=== PATIENT | female | born 1960 | race Caucasian/White ===

== ENCOUNTER 2020-02-04 13:58 | Outpatient (RCR) | payer OTHER, SELFPAY ==
--- NOTE | 2020-02-06 07:50 | PTOPEVAL ---
Thank you for referring Mihaela Guadalupe to [facility]. Please review, sign, date and return this plan of care HU. I agree with and certify that the following plan of care is medically necessary. Referring Physician Date Admitting Provider: Attending Provider: German Cornelius MD Referring Provider: *PT Outpatient Evaluation Start: 02/04/20 14:11 Freq: Status: Active Protocol: Document 02/04/20 14:11 ALFREDO (Rec: 02/04/20 14:45 ALFREDO [id number]) Therapy Assessment Status Assessment Status Assessment Status Evaluation Evaluation Information Problem Diagnosis low back pain Onset 01/11/20 Subjective Information Pt. reports that she has a Query Text:As Reported By Patient/ long standing hx of low back Family pain for about 30 years. She reports she suffered a recent flare up starting on 01/11/20. She reports that she has been moving recently and has contributed to her pain. She describes pain on the right side of the low back and notes that she does develop weakness into the left knee. She reports that her goal is to be able to stand for longer than 1 hour without pain. Prior Level of Function Activity Level (Last 3 Months) Occupation unemployed Hand Dominance Right Activity of Daily Living Ability Independent Indoor/Home Mobility Independent Community Mobility Independent Stairs Ability Independent Functional Cognition (Planning, Shopping Independent , Taking Medications) Cooking Yes Cleaning Yes Laundry Yes Shopping Yes Driving Yes Comments Additional Prior Level of Function Pt. reports she cannot perform Comments ADL's and IADL's for long periods of time due to pain. Pain Assessment Pain Scale Pain Scale Used Numeric (1 - 10) Self Report Pain Assessment Lower Back Reported Pain Level 3 Pain Description Aching,Heavy Pain Frequency Chronic,Continuous Lowest Pain Intensity 3 Greatest Pain Intensity 10 Pain Aggravating Factors Bending,Lifting,Stair Climbing ,Supine,Walking Pain Score Pain Score 3: Self Rep
--- NOTE | 2020-02-19 15:02 | PCPTNOTE ---
02/19/20-pt cancelled today's appointment secondary to allergies.-.
--- NOTE | 2020-02-21 10:30 | PCPTNOTE ---
02/21/20-pt cancelled apt today -
== END 2020-03-11 10:07 | disposition home or self-care (01) ==
LOC: CHSPT 13:58
PROVIDERS: PCP Family Medicine; Visit Provider Family Medicine
DX: M54.5 Low back pain (principal); M54.10 Radiculopathy, site unspecified
CPT/HCPCS: 97014; 97110; 97140; 97161; G0283

== ENCOUNTER 2020-03-29 10:17 | Outpatient (CLI) | payer OTHER, SELFPAY ==
--- NOTE | ~2020-03-29 | MR_ITS ---
EXAMINATION: MR lumbar spine wo con EXAM DATE: 03/29/2020 11:54 INDICATION: Low back pain going down right leg. TECHNIQUE: Multi-sequential, multiplanar MR images of the lumbar spine were obtained without contrast . Sagittal T1, T2, T2 fat saturation images. Axial T2 weighted images. There is no prior study for comparison. FINDINGS: The vertebral bodies are aligned in the AP dimension. Vertebral body and disc heights are w ell-maintained. Mild lumbar disc desiccation. There are no suspicious marrow signal abnormalities. Th e conus medullaris terminates at the L1/2 level and has normal signal intensity and morphology. Para spinal soft tissue is unremarkable. Level by level evaluation: T12-L1: Disc does not extend beyond the endplate margin. Facet arthropathy: None. Neural foraminal stenosis: No stenosis. Central canal stenosis: No stenosis. L1-L2: Disc does not extend beyond the endplate margin. Facet arthropathy: Mild. Neural foraminal stenosis: No stenosis. Central canal stenosis: No stenosis. L2-L3: Disc does not extend beyond the endplate margin. Facet arthropathy: Mild. Neural foraminal stenosis: No stenosis. Central canal stenosis: No stenosis. L3-L4: There is a minimal diffuse disc bulge. Facet arthropathy: Moderate left, mild to moderate right. Neural foraminal stenosis: No stenosis. Central canal stenosis: No stenosis. L4-L5: There is a mild diffuse disc bulge. Facet arthropathy: Moderate. Neural foraminal stenosis: Mild to moderate bilateral. Central canal stenosis: Mild. L5-S1: Small for lost extrusion causing mild left neural foraminal stenosis. Facet arthropathy: Mild. Neural foraminal stenosis: Mild left, no right. Central canal stenosis: No stenosis. IMPRESSION: 1. Mild lumbar spondylosis. Reviewed, dictated and finalized at location A. IMPRESSION: 1. Mild lumbar spondylosis.
== END 2020-03-29 10:18 | disposition home or self-care (01) ==
LOC: CHSIMG 10:19
PROVIDERS: PCP Family Medicine; Visit Provider Family Medicine
DX: M54.5 Low back pain (principal)
CPT/HCPCS: 72148

== ENCOUNTER 2020-06-18 12:40 | Outpatient (CLI) | payer OTHER, SELFPAY ==
--- NOTE | ~2020-06-18 | XR_ITS ---
EXAMINATION: XR ankle LT min 3V DATE: 06/18/2020 13:19 INDICATION: Left ankle pain TECHNIQUE: Anteroposterior, oblique, mortise, and lateral views of the left ankle were obtained. COMPARISON: None. FINDINGS: Alignment is normal. No fracture. Unchanged mild lateral predominant nonuniform joint space narrowin g at the tibiotalar articulation. Small Achilles and plantar calcaneal enthesophytes. No ankle joint effusion. Soft tissue swelling about the left ankle. Possible left ankle joint effusion. IMPRESSION: 1. No acute osseous abnormality. Reviewed, dictated and finalized at location A.
--- NOTE | ~2020-06-18 | XR_ITS ---
EXAMINATION: XR knee LT 3V DATE: Left knee pain INDICATION: Left knee pain TECHNIQUE: AP and sunrise views of the left knee were obtained. COMPARISON: 07/25/2018 FINDINGS: Alignment is normal. No fracture. Tiny marginal osteophytes in all 3 compartments. Mild joint space n arrowing in the medial aspect of the patellofemoral articulation which is increased since the prior s tudy. Soft tissues are unremarkable. IMPRESSION: 1. Minimal to mild tricompartmental osteoarthritis at the left knee. Reviewed, dictated and finalized at location A.
== END 2020-06-18 12:41 | disposition home or self-care (01) ==
LOC: CHSIMG 12:42
PROVIDERS: PCP Family Medicine; Visit Provider Family Medicine
DX: M25.572 Pain in left ankle and joints of left foot (principal); M25.562 Pain in left knee
CPT/HCPCS: 73562; 73610

== ENCOUNTER 2020-08-20 14:22 | Emergency (ER) | payer OTHER, SELFPAY ==
--- NOTE | ~2020-08-20 | CT_ITS ---
EXAMINATION: CT abdomen pelvis wo con DATE: 08/20/2020 15:42 INDICATION: Left flank pain. History of kidney stones. TECHNIQUE: Computed tomography (CT) of the abdomen and pelvis was performed without intravenous contr ast. Automated exposure control and iterative reconstruction technique were employed. Exam dose: 501 .13 mGy-cm total exam DLP. COMPARISON: 10/17/2018 CT abdomen pelvis. FINDINGS: There is mild discoid atelectasis and/or scarring in the lower lungs. Normal heart size. No pericardial or pleural effusion. Status post cholecystectomy. No hepatic, splenic, pancreatic, adrenal or renal space occupying mass lesion is detected on this petersen ited noncontrast examination. There is a questionable pinpoint nonobstructing left lower pole renal c alculus; otherwise no urinary tract calculus or hydroureteronephrosis. Status post hysterectomy. The urinary bladder is unremarkable. Normal caliber of the abdominal aorta. There are numerous shotty lymph nodes throughout the left periaortic area extending into the left com mon iliac chain, mildly increased in prominence compared to the prior examination of 10/17/2018. Oth erwise no intraperitoneal or retroperitoneal or pelvic mass lesion or lymphadenopathy or ascites. No bowel obstruction or pneumatosis or intraperitoneal free air. Status post anterior abdominal wall repair. No suspicious osteolytic or osteoblastic lesions are noted. IMPRESSION: Nonspecific left periaortic and common iliac shotty lymph nodes, mildly increased in pro minence compared to 10/17/2018 Possible very subtle pinpoint nonobstructing lower pole left renal calculus; no ureteral calculus or hydroureteronephrosis Status post cholecystectomy Status post hysterectomy Reviewed, dictated and finalized at Location A. Reviewed, dictated and finalized at location A. IMPRESSION: Nonspecific left periaortic and common iliac shotty lymph nodes, m ildly increased in prominence compared to 10/17/2018 Possible very subtle pinpoint nonobstructing lower pole left renal calculus; no ureteral calculus or hydroureteronephrosis Status post cholecystectomy Status post hysterectomy
[2020-08-20 14:25] VITALS: BP 129/75; PULSE 82; RESP 13; TEMP 36.8; O2SAT 98
--- NOTE | 2020-08-20 15:04 | ED.BACK ---
HPI - Back Pain/Injury General Chief Complaint: Back Pain/Injury Stated Complaint: upper back pain hx of kidney stones Source: patient Mode of arrival: ambulatory Limitations: no limitations History of Present Illness HPI Narrative: Pt has been having ab pain/ left flank pain for last few days. She states that she has been moving so she didnt think too much about it, but over last few days it has gotten worse. She tells me she has a kidney stone that was too big to pass, but hasnt been able to see a urologist, because they dont take her insurance MD elicited complaint: back pain Pertinent past history: kidney stones Onset (ago): day(s) Timing: intermittent Severity: severe Quality: sharp Location: left flank Radiation: none Exacerbating factors: none Relieving factors: none Context: history of kidney stones Associated symptoms: denies other symptoms Related Data Home Medications Medication Instructions Recorded Confirmed atorvastatin 40 mg PO DAILY 08/20/20 08/20/20 clonazepam 1 mg PO HS 08/20/20 08/20/20 fenofibrate nanocrystallized 48 mg PO DAILY 08/20/20 08/20/20 pantoprazole 40 mg PO DAILY 08/20/20 08/20/20 pioglitazone 30 mg PO DAILY 08/20/20 08/20/20 Allergies Allergy/AdvReac Type Severity Reaction Status Date / Time aspirin Allergy Unknown Unknown Verified 08/20/20 15:23 morphine Allergy Unknown Unknown Verified 08/20/20 15:23 procaine Allergy Unknown NOVOCAINE Verified 08/20/20 15:23 DOES NOTHING SURGICAL TAPE Allergy Severe BLISTERS Uncoded 05/22/04 13:02 Review of Systems Review of Systems: All systems reviewed & are unremarkable except as noted in HPI and below Constitutional: Constitutional: Reports no additional constitutional complaints Eyes: Eyes: Reports no additional eye complaints ENT: Reports system reviewed and no additional complaints, except as documented Cardiovascular: Cardiovascular: Reports no additional cardiovascular complaints Respiratory: Respiratory: Reports no additional respiratory complaints Gastrointestinal: Gastrointestinal: Reports no additional gastrointestinal complaints Genitourinary: Comments: c/o cloudy urine Musculoskeletal: Musculoskeletal: Reports no additional musculoskeletal complaints Neurologic: Reports system reviewed and no additional complaints, except as documented Psychiatric: Psychiatric: Reports no additional psychiatric complaints Hematologic/Lymphatic: Hematologic/Lymphatic: Reports no additional hematologic/lymphatic complaints Allergic/Immunologic: Comments: allergic type rash onleft breast. Pt states rash was more widespread, but she has been taking benadryl and it has been getting better PMFSH Past Medical History Medical History Constipation Lower abdominal pain Family History Family History Father Diabetes mellitus Family history of cardiovascular disease Social History Social History (Updated 08/20/20 @ 15:16 by Tawnya Lilly MD) Smoking status: Never smoker Alcohol intake: current Substance use: never Living arrangements: with family Exam Const: General: no acute distress Orientation/consciousness: patient oriented x3 HENMT: Head: normal to inspection Eyes: Conjunctivae: conjunctivae normal Neck: Neck: normal visual inspection Chest: Chest palpation & inspection: normal inspection of the chest Resp: Effort & Inspection: normal respiratory effort Cardio: Rate: regular rate Rhythm: regular rhythm Skin: General skin exam: normal color Other: mild contact dermatitis on left breast Neuro: General: patient oriented x3 and moves all extremities Extrem: General: normal to inspection Psych: Mental Status: mental status grossly normal Course Vital Signs Vital signs: Vital Signs Temperature 36.8 C 08/20/20 14:25 Pulse Rate 82 08/20/20 14:25 Respirat
[2020-08-20] MEDS: KETOROLAC 30 MG/ML VIAL (*BKC) IV PUSH (15:20)
[2020-08-20 15:30] LABS: Basophils Absolute Auto 0.04 K/mm3 (0.00-0.10); Basophils Percent Auto 0.6 % (0.0-1.0); Eosinophils Percent Auto 1.6 % (1.0-6.0); Hematocrit 36.8 % (35.0-49.0); Hemoglobin 12.1 g/dL (12.0-15.0); Immature Granulocyte Absolute 0.06 K/mm3 (0.00-0.00); Lymphocytes Absolute Auto 1.58 K/mm3 (1.10-4.50); Lymphocytes Percent Auto 25.6 % (18.0-42.0); Mean Corpuscular HGB Conc 32.9 g/dL (32.0-36.0); Mean Corpuscular Hemoglobin 29.8 pg (27.0-31.0); Mean Corpuscular Volume 90.6 fL (78.0-102.0); Mean Platelet Volume 10.5 fl (9.2-11.8); Monocytes Absolute Auto 0.51 K/mm3 (0.10-0.90); Monocytes Percent Auto 8.3 % (2.0-11.0); Neutrophils Absolute Auto 3.9 K/mm3 (1.7-7.2); Neutrophils Percent Auto 62.9 % (50.0-70.0); Platelet Count Result 200 K/mm3 (150-420); Red Blood Count 4.06 M/mm3 (4.20-5.40); Red Cell Distribution Width 13.2 % (11.6-14.4); White Blood Count 6.2 K/mm3 (4.8-10.8)
[2020-08-20 15:32] LABS: Add Urine Microscopic? YES; Appearance Urine Clear (Clear); Bilirubin Urine Negative (Negative); Blood Urine Negative (Negative); Color Urine Yellow (Yellow); Glucose Urine UA Negative (Negative); Ketones Urine Negative (Negative); Leukocyte Esterase Ur 1+ LEU/UL (Negative); Nitrate Urine Negative (Negative); Protein Urine Negative (Negative); Specific Grav Ur 1.025 (1.010-1.020); Urobilinogen Urine 0.2 mg/dL (0.2-1.0); pH Urine 5.5 (5.0-8.0)
[2020-08-20 15:45] LABS: RBC Urine None seen /hpf (0-2); Squamous Epithelial Cell Urine Few /hpf (Few)
[2020-08-20 15:46] LABS: Alanine Aminotransferase 27 U/L (14-59); Albumin Level 3.7 g/dL (3.4-5.0); Alkaline Phosphatase 65 U/L (46-116); Anion Gap 8 mmol/L (8-16); Aspartate Amino Transferase 17 U/L (15-37); Bilirubin,Total 0.3 mg/dL (0.00-1.00); Blood Urea Nitrogen 21 mg/dL (7-18); Calcium 8.9 mg/dL (8.5-10.1); Carbon Dioxide 27 mmol/L (21-32); Chloride 105 mmol/L (98-108); Estimated CRCL calculation 73 ml/min; Estimated Glomerular Filt Rate > 60; Glucose 116 mg/dL (70-99); Lipase 103 U/L (73-393); Osmolality Calculated 294 mOsm/kg (285-295); Potassium 3.8 mmol/L (3.5-5.1); Sodium 140 mmol/L (136-145); Total Protein 7.2 g/dL (6.4-8.2)
[2020-08-20 15:46] LABS: Bacteria Urine 1+ /hpf
[2020-08-20 16:48] VITALS: BP 100/55; RESP 15; O2SAT 99
== END 2020-08-20 16:55 | disposition home or self-care (01) ==
PROVIDERS: Emergency Provider Emergency Medicine; PCP Family Medicine
DX: N30.00 Acute cystitis without hematuria (principal)
CPT/HCPCS: 36415; 74176; 80053; 81001; 83690; 85025; 87086; 96374; 99283; 99284; J1885

== ENCOUNTER 2020-08-28 11:15 | Outpatient (CLI) | payer OTHER, SELFPAY ==
[2020-08-29 15:20] LABS: SARS-CoV-2 RNA PCR Negative
== END 2020-08-28 11:16 | disposition home or self-care (01) ==
PROVIDERS: PCP Family Medicine; Visit Provider Family Medicine
DX: Z20.828 Contact with and (suspected) exposure to other viral communicable diseases (principal)
CPT/HCPCS: 87635; C9803; U0003

== ENCOUNTER 2020-10-11 10:09 | Outpatient (CLI) | payer OTHER, SELFPAY ==
[2020-10-13 16:54] LABS: SARS-CoV-2 RNA PCR Negative
== END 2020-10-11 10:10 | disposition home or self-care (01) ==
LOC: CHSLAB 10:11
PROVIDERS: PCP Family Medicine; Visit Provider Family Medicine
DX: R05 Cough (principal); Z20.828 Contact with and (suspected) exposure to other viral communicable diseases
CPT/HCPCS: 87635; C9803; U0003

== ENCOUNTER 2020-11-28 15:29 | Outpatient (CLI) | payer OTHER, SELFPAY ==
[2020-11-28 16:10] LABS: SARS-CoV-2 Ag Negative (Negative)
[2020-11-28 16:11] LABS: Influenza Control Valid (Valid)
== END 2020-11-28 15:30 | disposition home or self-care (01) ==
LOC: CHSLAB 15:32
PROVIDERS: PCP Family Medicine; Visit Provider Family Medicine
DX: J00 Acute nasopharyngitis [common cold] (principal); Z20.822 Contact with and (suspected) exposure to COVID-19
CPT/HCPCS: 87426; 87804; C9803

== ENCOUNTER 2021-01-05 10:12 | Outpatient (CLI) | payer OTHER, SELFPAY ==
[2021-01-06 18:33] LABS: SARS-CoV-2 RNA PCR Negative
== END 2021-01-05 10:13 | disposition home or self-care (01) ==
LOC: CHSLAB 10:15
PROVIDERS: PCP Family Medicine; Visit Provider Family Medicine
DX: Z20.822 Contact with and (suspected) exposure to COVID-19 (principal)
CPT/HCPCS: C9803; U0003; U0005

== ENCOUNTER 2021-02-11 17:12 | Outpatient (CLI) | payer OTHER, SELFPAY ==
--- NOTE | ~2021-02-11 | XR_ITS ---
[XR ribs LT 2V w CXR 2V ] INDICATION: Left chest wall pain TECHNIQUE: Frontal projection of the upper left ribs, frontal projection of the lower left ribs, obli que projection of all the left ribs, frontal inspiratory chest x-ray for interpretation. FINDINGS: There are no displaced rib fractures identified. There are no soft tissue abnormality see n. There is atelectasis of the left midlung zone.. There are cholecystectomy clips. IMPRESSION: 1:No displaced rib fractures. 2:Atelectasis left midlung zone. Reviewed, dictated and finalized at location A.
[2021-02-11 17:32] LABS: Basophils Absolute Auto 0.03 K/mm3 (0.00-0.10); Basophils Percent Auto 0.5 % (0.0-1.0); Eosinophils Percent Auto 1.7 % (1.0-6.0); Hematocrit 37.8 % (35.0-49.0); Hemoglobin 12.1 g/dL (12.0-15.0); Immature Granulocyte Absolute 0.09 K/mm3 (0.00-0.00); Immature Granulocyte Percent A 1.5 % (0.0-0.0); Lymphocytes Absolute Auto 1.35 K/mm3 (1.10-4.50); Lymphocytes Percent Auto 22.7 % (18.0-42.0); Mean Corpuscular Hemoglobin 29.6 pg (27.0-31.0); Mean Corpuscular Volume 92.4 fL (78.0-102.0); Mean Platelet Volume 10.2 fl (9.2-11.8); Monocytes Absolute Auto 0.64 K/mm3 (0.10-0.90); Monocytes Percent Auto 10.8 % (2.0-11.0); Neutrophils Absolute Auto 3.7 K/mm3 (1.7-7.2); Neutrophils Percent Auto 62.8 % (50.0-70.0); Platelet Count Result 197 K/mm3 (150-420); Red Blood Count 4.09 M/mm3 (4.20-5.40); Red Cell Distribution Width 13.7 % (11.6-14.4)
[2021-02-11 17:42] LABS: Hemoglobin A1C 6.5 % (<5.7)
[2021-02-11 17:54] LABS: MALB Creatinine Ratio 40.9 mg/g (0-30)
[2021-02-11 17:57] LABS: Troponin I 6.1 ng/L (0.00-60.4)
[2021-02-11 18:24] LABS: Alanine Aminotransferase 25 U/L (14-59); Albumin Level 3.6 g/dL (3.4-5.0); Alkaline Phosphatase 79 U/L (46-116); Anion Gap 10 mmol/L (8-16); Aspartate Amino Transferase 17 U/L (15-37); Bilirubin,Total 0.5 mg/dL (0.00-1.00); Blood Urea Nitrogen 21 mg/dL (7-18); Calcium 8.9 mg/dL (8.5-10.1); Carbon Dioxide 26 mmol/L (21-32); Chloride 103 mmol/L (98-108); Estimated Glomerular Filt Rate 59; Glucose 176 mg/dL (70-99); Osmolality Calculated 295 mOsm/kg (285-295); Potassium 3.9 mmol/L (3.5-5.1); Sodium 139 mmol/L (136-145); Total Protein 7.5 g/dL (6.4-8.2)
[2021-02-11 18:27] LABS: Thyroid Stimulating Hormone < 0.01 uIU/mL (0.36-3.74)
[2021-02-12 07:18] LABS: Free T4 Free Thyroxine 1.07 ng/dL (0.76-1.46)
== END 2021-02-11 17:13 | disposition home or self-care (01) ==
LOC: CHSLAB 17:14
PROVIDERS: PCP Family Medicine; Visit Provider Family Medicine
DX: E11.9 Type 2 diabetes mellitus without complications (principal); R07.89 Other chest pain; R94.6 Abnormal results of thyroid function studies
CPT/HCPCS: 36415; 71046; 71100; 80053; 83036; 84439; 84443; 84484; 85025

== ENCOUNTER 2021-06-03 08:58 | Outpatient (CLI) | payer OTHER, SELFPAY ==
--- NOTE | ~2021-06-03 | NM_ITS ---
EXAM: NM gastric emptying study DATE: 06/03/2021 15:18 INDICATION: Abdominal distention (gaseous). TECHNIQUE: A gastric emptying study was performed using the methodology of Cathleen ALBRIGHT, et al. J Nucl Med 2007; 48:568-572. The patient was given a meal consisting of 2 scrambled eggs labeled with 1 mCi Tc-99m sulfur colloid, 2 slices of toast, two packages of jam, and approximately 120 mL of water. Si multaneous anterior and posterior 1-min images of the abdomen were obtained with the patient supine a t multiple time points over a total period of 4 hours. The geometric mean of anterior and posterior v iews was determined, and the percentage retention was calculated for each time point. COMPARISON: CT abdomen and pelvis 08/20/2020 FINDINGS: Gastric retention of the radiotracer-labeled meal was 61%, 29%, and 7% at the 1-hour, 2-ho ur, and 4-hour time points, respectively. With this technique, apparent rapid gastric emptying is sug gested by <30% gastric retention at 1 hour. Delayed gastric emptying is defined by gastric retention of >90% at 1 hour, >60% retention at 2 hours, or >10% retention at 4 hours. IMPRESSION: 1. Normal gastric emptying. Reviewed, dictated and finalized at location A. IMPRESSION: 1. Normal gastric emptying.
== END 2021-06-03 08:59 | disposition home or self-care (01) ==
LOC: ANHIMG 09:01
PROVIDERS: PCP Family Medicine; Visit Provider Internal Medicine Gastroenterology
DX: R14.0 Abdominal distension (gaseous) (principal)
CPT/HCPCS: 78264; A9541

== ENCOUNTER 2021-08-27 13:15 | Outpatient (CLI) | payer OTHER, SELFPAY ==
--- NOTE | ~2021-08-27 | CT_ITS ---
EXAMINATION: CT abdomen pelvis wo con DATE: 08/27/2021 13:34 INDICATION: Abdominal pain TECHNIQUE: Computed tomography (CT) of the abdomen and pelvis was performed without intravenous contr ast. The dose-length product (DLP) was 1104.10 mGy-cm. Automated exposure control and iterative recon struction technique were employed. COMPARISON: 08/20/2020 FINDINGS: Minimal dependent atelectasis is present in the lung bases. The heart size is normal. The g allbladder is surgically absent. Punctate calcifications in an otherwise normal spleen likely represe nt healed granulomatous disease. The liver, pancreas, and adrenal glands are normal. There is a 3 mm nonobstructing stone of the right kidney. The left kidney is unremarkable. Left periaortic lymphadeno david persists but has improved. There is no free intraperitoneal gas or evidence of bowel obstructio n. Changes of mesh ventral hernia and right inguinal hernia repair are noted. The hernia repair appea rs intact. There is mild lumbar spondylosis. IMPRESSION: 1. No CT correlate for the patient's symptoms. 2. Left periaortic lymphadenopathy with interval decreased, likely reactive. 3. Nonobstructing right nephrolithiasis. Reviewed, dictated and finalized at location B.
== END 2021-08-27 13:16 | disposition home or self-care (01) ==
LOC: CHSIMG 13:16
PROVIDERS: PCP Family Medicine; Visit Provider Family Medicine
DX: R10.9 Unspecified abdominal pain (principal)
CPT/HCPCS: 74176

== ENCOUNTER 2022-06-07 08:27 | Outpatient (CLI) | payer MEDICARE, MEDICAID, SELFPAY ==
--- NOTE | 2022-06-07 08:30 | EST_ITS ---
Patient Info Name: Mihaela Guadalupe Age: 61 years : 1960 Gender: Female Ht: 65 in Wt: 215 lbs BSA: 2.16 m2 BP: 108 / 66 mmHg Technical Quality: Good Exam Date: 06/07/2022 8:52 AM Exam Location: [facility] Patient Status: Outpatient Admit Date: 06/07/2022 Staff Ordering Physician: German Cornelius MD Attending Provider: Myles Chaidez NMAA Exam Type: CA stress test treadmill Study Info An exercise stress test was performed. History/Risk Factors Obesity: Yes Diabetes Mellitus: Yes Family History: Coronary Artery Disease Dialysis: Prior Summary 1. 1. Negative Chucho exercise stress test for ischemic ST changes by ECG criteria. However, patient achieved only78% MPHR for age group which reduces sensitivity of the test. 2. 2. Poor functional capacity, achieving only 5 METs of workload. 3. 3. Appropriate HR response to exercise. 4. 4. Appropriate HR recovery at 1 minute post exercise. 5. 5. No imaging with stress testing. Recommendations * Continue medical therapy for diabetes. Protocol: Chucho Stress ECG Details Stage: REST Duration (min): 1 min : 16 sec Speed (mph): 0.0 Grade (%): 0 HR (bpm): 72 SBP (mmHg): 108 DBP (mmHg): 66 METS: --- Stage: REST Duration (min): 7 min : 23 sec Speed (mph): 0.0 Grade (%): 0 HR (bpm): 71 SBP (mmHg): 108 DBP (mmHg): 66 METS: --- Stage: STAGE 1 Duration (min): 1 min : 0 sec Speed (mph): 1.7 Grade (%): 10 HR (bpm): 100 SBP (mmHg): 108 DBP (mmHg): 66 METS: --- Stage: STAGE 1 Duration (min): 2 min : 0 sec Speed (mph): 1.7 Grade (%): 10 HR (bpm): 114 SBP (mmHg): 108 DBP (mmHg): 66 METS: --- Stage: STAGE 1 Duration (min): 3 min : 0 sec Speed (mph): 1.7 Grade (%): 10 HR (bpm): 120 SBP (mmHg): 108 DBP (mmHg): 66 METS: --- Stage: STAGE 2 Duration (min): 0 min : 15 sec Speed (mph): 2.5 Grade (%): 12 HR (bpm): 121 SBP (mmHg): 108 DBP (mmHg): 66 METS: --- Stage: RECOVERY Duration (min): 0 min : 44 sec Speed (mph): 0.0 Grade (%): 0 HR (bpm): 120 SBP (mmHg): 108 DBP (mmHg): 66 METS: --- Stage: RECOVERY Duration (min): 1 min : 44 sec Speed (mph): 0.0 Grade (%): 0 HR (bpm): 93 SBP (mmHg): 169 DBP (mmHg): 85 METS: --- Stage: RECOVERY Duration (min): 2 min : 44 sec Speed (mph): 0.0 Grade (%): 0 HR (bpm): 89 SBP (mmHg): 169 DBP (mmHg): 85 METS: --- Stage: RECOVERY Duration (min): 3 min : 44 sec Speed (mph): 0.0 Grade (%): 0 HR (bpm): 83 SBP (mmHg): 169 DBP (mmHg): 85 METS: --- Stage: RECOVERY Duration (min): 4 min : 44 sec Speed (mph): 0.0 Grade (%): 0 HR (bpm): 79 SBP (mmHg): 169 DBP (mmHg): 85 METS: --- Stage: RECOVERY Duration (min): 5 min : 44 sec Speed (mph): 0.0 Grade (%): 0 HR (bpm):
== END 2022-06-07 08:28 | disposition home or self-care (01) ==
LOC: CHSCARD 08:32
PROVIDERS: PCP Family Medicine; Visit Provider Family Medicine
DX: R00.2 Palpitations (principal)
CPT/HCPCS: 93017

== ENCOUNTER 2022-08-13 09:13 | Outpatient (CLI) | payer MEDICARE, MEDICAID, SELFPAY | END 2022-08-13 09:14 | disposition home or self-care (01) | LOC: CHSCARD 09:39 | PROVIDERS: PCP Family Medicine; Visit Provider Family Medicine | DX: R06.00 Dyspnea, unspecified (principal) | CPT/HCPCS: 94060; 94726; 94729 ==

== ENCOUNTER 2022-11-04 11:24 | Emergency (ER) | payer MEDICARE, MEDICAID, SELFPAY ==
[2022-11-04] VITALS (44 sets, daily range): BP systolic 113–158; BP diastolic 74–99; PULSE 74–108; RESP 11–37; TEMP 36.1; O2SAT 91–98
--- NOTE | ~2022-11-04 | CT_ITS ---
EXAMINATION: CT abdomen pelvis w con DATE: 11/04/2022 13:05 INDICATION: Nausea, vomiting and acute right lower quadrant abdominal pain. TECHNIQUE: Computed tomography (CT) of the abdomen and pelvis was performed with 100 mL Omnipaque-350 intravenous contrast. Automated exposure control and iterative reconstruction technique were employe d. The dose-length product was 1227.99 mGy-cm. COMPARISON: 08/27/2021 FINDINGS: Mild discoid atelectasis at the lingula and some dependent atelectasis in the bilateral lower lobes. Calcified left lower lobe nodule and small splenic calcific lesions consistent with old granulomatous disease. Heart size is normal. No pericardial or pleural effusion. Cholecystectomy clips the gallbla dder fossa. Liver, pancreas, bilateral adrenal glands and left kidney are normal. 7 x 5 x 3 mm obstru cting stone at the mid right ureter with mild hydroureteronephrosis, delayed right nephrogram and asy mmetric moderate right perinephric stranding. Status post appendectomy with surgical clips the tip th e cecum. Bowels are otherwise unremarkable with no obstruction. Postoperative change of prior ventral hernia mesh repair. Bladder is normal. No free intraperitoneal gas or fluid. No change since the mos t recent study and mild left para-aortic lymphadenopathy lymphadenopathy which is decreased since an earlier study dated 08/12/2020 and likely reactive. No new or enlarging abdominal or pelvic lymphaden opathy.. Moderate lower lumbar facet osteoarthritis. Otherwise minimal scattered degenerative skeleta l changes. IMPRESSION: 1. Obstructing 7 x 5 x 3 mm mid right ureteral stone with mild right hydroureteronephrosis. Correlate with urinalysis to exclude associated ascending urinary tract infection. Reviewed, dictated and finalized at location A. CULTURAL PLOW OPERATOR IMPRESSION: 1. Obstructing 7 x 5 x 3 mm mid right ureteral stone with mild right hydrourete ronephrosis. Correlate with urinalysis to exclude associated ascending urinary tract infection.
--- NOTE | 2022-11-04 11:35 | ECG_ITS ---
Measurements Intervals [place] Rate: 83 P: 59 TX: 180 QRS: 65 QRSD: 90 T: 8 QT: 384 QTc: 453 Interpretive Statements SINUS RHYTHM EARLY PRECORDIAL R/S TRANSITION BORDERLINE ST-T WAVE ABNORMALITY- ANTEROLAT/INF LEADS BORDERLINE ECG NO PREVIOUS ECG AVAILABLE FOR COMPARISON Electronically Signed On 11-04-2022 12:58:20 SENIOR ADVISOR by Arun Pascual D.O.
[2022-11-04] MEDS: KETOROLAC 30 MG/ML VIAL (*BKC) IV PUSH (12:11)
[2022-11-04 12:12] LABS: Basophils Absolute Auto 0.01 K/mm3 (0.00-0.10); Basophils Percent Auto 0.1 % (0.0-1.0); Hematocrit 39.3 % (35.0-49.0); Immature Granulocyte Absolute 0.08 K/mm3 (0.00-0.00); Immature Granulocyte Percent A 0.9 % (0.0-0.0); Lymphocytes Absolute Auto 0.78 K/mm3 (1.10-4.50); Lymphocytes Percent Auto 8.7 % (18.0-42.0); Mean Corpuscular HGB Conc 33.1 g/dL (32.0-36.0); Mean Corpuscular Hemoglobin 29.6 pg (27.0-31.0); Mean Corpuscular Volume 89.5 fL (78.0-102.0); Mean Platelet Volume 10.4 fl (9.2-11.8); Monocytes Absolute Auto 0.58 K/mm3 (0.10-0.90); Monocytes Percent Auto 6.5 % (2.0-11.0); Neutrophils Absolute Auto 7.5 K/mm3 (1.7-7.2); Neutrophils Percent Auto 83.8 % (50.0-70.0); Platelet Count Result 232 K/mm3 (150-420); Red Blood Count 4.39 M/mm3 (4.20-5.40); Red Cell Distribution Width 13.2 % (11.6-14.4); White Blood Count 8.9 K/mm3 (4.8-10.8)
[2022-11-04] MEDS: SODIUM CHLORIDE 0.9% IV 1,000 ML 999 ML IV CONT (12:12)
[2022-11-04] MEDS: ONDANSETRON INJ 4 MG/2 ML VIAL IV PUSH ×2 (12:12→14:54)
[2022-11-04 12:25] LABS: Add Urine Microscopic? YES; Appearance Urine Clear (Clear); Bilirubin Urine Negative (Negative); Blood Urine 3+ (Negative); Glucose Urine UA Negative (Negative); Ketones Urine Negative (Negative); Leukocyte Esterase Ur 1+ LEU/UL (Negative); Nitrate Urine Negative (Negative); Protein Urine 2+ (Negative); Specific Grav Ur >= 1.030 (1.010-1.020); Urobilinogen Urine 0.2 mg/dL (0.2-1.0); pH Urine 6.5 (5.0-8.0)
[2022-11-04 12:30] LABS: Partial Thromboplastin Time 30.1 SEC (23.90-30.70); Prothrombin Time 11.2 Seconds (9.50-12.10)
[2022-11-04 12:32] LABS: Bacteria Urine Trace /hpf; Color Urine Brown (Yellow); RBC Urine >75 /hpf (0-2); Squamous Epithelial Cell Urine Few /hpf (Few)
[2022-11-04 12:34] LABS: Lactic Acid Reflex 1.1 mmol/L (0.4-2.0)
--- NOTE | 2022-11-04 12:36 | PC.NURSE ---
PT IS SITTING ON STRETCHER WITH AT BEDSIDE. IVF INFUSING ORDERED WITHOUT DIFFICULTY. VSS PER MONITOR. NAD NOTED. WILL CONTINUE TO MONITOR.
[2022-11-04 12:37] LABS: Alanine Aminotransferase 23 U/L (14-59); Albumin Level 3.8 g/dL (3.4-5.0); Alkaline Phosphatase 69 U/L (46-116); Anion Gap 9 mmol/L (8-16); Aspartate Amino Transferase 23 U/L (15-37); Bilirubin,Total 0.4 mg/dL (0.00-1.00); Blood Urea Nitrogen 25 mg/dL (7-18); Calcium 8.8 mg/dL (8.5-10.1); Carbon Dioxide 26 mmol/L (21-32); Chloride 100 mmol/L (98-108); Estimated CRCL calculation 54 ml/min; Estimated Glomerular Filt Rate 52; Glucose 187 mg/dL (70-99); Lipase 29 U/L (16-77); Osmolality Calculated 289 mOsm/kg (285-295); Potassium 3.7 mmol/L (3.5-5.1); Sodium 135 mmol/L (136-145); Total Protein 8.1 g/dL (6.4-8.2); Troponin I 6.6 ng/L (0.00-60.4)
[2022-11-04 12:38] LABS: CRP 4.9 mg/dL (0.0-0.9)
--- NOTE | 2022-11-04 13:32 | PC.NURSE ---
PT REPORTS NAUSEA HAS IMPROVED AND PAIN WAS GONE, HOWEVER IS RETURNING AT THIS TIME CURRENTLY 12/03. ERP IS AWARE OF PT STATUS, PT IS AWAITING RESULTS AT THIS TIME. NAD NOTED. WILL CONTINUE TO MONITOR.
--- NOTE | 2022-11-04 14:07 | ED.ABDPAIN ---
HPI - Abdominal Pain General Chief Complaint: Abdominal Pain Stated Complaint: right side pain Time Seen by Provider: 11/04/22 11:28 Source: patient and family Mode of arrival: ambulatory Limitations: no limitations History of Present Illness HPI narrative: This is a 62-year-old female that has a history of kidney stones, presents with some right abdominal and right flank pain patient has a history of cholecystectomy and appendectomy. Patient with history of diabetes hyperlipidemia. Patient presents with some right abdominal and flank pain that started around 4 in the morning with nausea with no fever chills no dysuria no chest pain no shortness of breath. Patient has nausea with episode of vomiting with no diarrhea or constipation. MD elicited complaint: abdominal pain and flank pain Pertinent past history: kidney stones Onset (ago): hour(s) Pain Consistency: constant Location: R flank Severity: severe Pain scale (0-10): 8 Quality: aching and sharp Migration to: R flank Related Data Home Medications Medication Instructions Recorded Confirmed atorvastatin 40 mg tablet 40 mg PO DAILY 08/20/20 11/04/22 clonazepam 0.5 mg tablet 1 mg PO HS 08/20/20 11/04/22 fenofibrate nanocrystallized 48 mg 48 mg PO DAILY 08/20/20 11/04/22 tablet pantoprazole 40 mg tablet,delayed 40 mg PO DAILY 08/20/20 11/04/22 release pioglitazone 30 mg tablet 30 mg PO DAILY 08/20/20 11/04/22 Allergies Allergy/AdvReac Type Severity Reaction Status Date / Time aspirin Allergy Unknown Unknown Verified 11/04/22 11:32 morphine Allergy Unknown Unknown Verified 11/04/22 11:32 procaine Allergy Unknown NOVOCAINE Verified 11/04/22 11:32 DOES NOTHING SURGICAL TAPE Allergy Severe BLISTERS Uncoded 07/13/22 16:06 Review of Systems Review of Systems: All systems reviewed & are unremarkable except as noted in HPI and below PMFSH Past Medical History Medical History Bloating BMI 38.0-38.9,adult Colon cancer screening Constipation GERD (gastroesophageal reflux disease) Lower abdominal pain Nausea Family History Family History Father Diabetes mellitus Family history of cardiovascular disease Social History Social History Alcohol intake: current Substance use: never Exam Const: General: healthy appearing Nutritional Appearance: well nourished Orientation/consciousness: patient oriented x3 Limitations: no limitations HENMT: Head: normal to inspection Mouth: Yes Normal oral and palatal mucosa present Teeth and gingiva: dentition normal Eyes: Conjunctivae: conjunctivae normal EOM: EOMs intact bilaterally Direct Ophthalmoscopy: no photophobia Neck: Neck: normal visual inspection Chest: Chest palpation & inspection: normal inspection of the chest Resp: Effort & Inspection: normal respiratory effort Auscultation: clear to auscultation bilaterally Cardio: Rate: regular rate Rhythm: regular rhythm GI: GI Palp: Yes Tenderness to palpation present (GI) Other: Right flank tenderness : General: Yes bladder normal to palpation Urinary Catheter: Urinary Catheter: patent and draining Back/Spine/Pelvis: Back: CVA tenderness Skin: General skin exam: normal color Rashes: no rashes Wounds: no wounds Neuro: General: patient oriented x3 Cranial nerves: Yes Nystagmus not present Extrem: General: normal to inspection and no clubbing, cyanosis or edema Psych: Mental Status: mental status grossly normal Affect: normal affect Attitude: cooperative Course Course Emergency Course: patient received IV fluids, Zofran and Toradol for pain and for nausea and vomiting labs reviewed with patient and family as well as CT scan reviewed which shows a mid right ureteral stone with mild right hydronephrosis stone is 7x5x3 and obstructing. spoke with Urology a
[2022-11-04] MEDS: HYDROmorphone HCL INJ (*CRX) 2 MG/ML VIAL 0.5 MG IV PUSH (14:48)
--- NOTE | 2022-11-04 14:56 | PC.NURSE ---
PT WAS REPORTING INCREASING PAIN AND NAUSEA. MEDICATIONS ADMINISTERED ORDERED WITHOUT DIFFICULTY. PT CONTINUES TO AWAIT RETURN CALL FROM [facility] AT THIS TIME. PT IS NOW RESTING ON STRETCHER, WARM BLANKET PROVIDED. AT BEDSIDE. VSS PER MONITOR. NAD NOTED. WILL CONTINUE TO MONITOR.
--- NOTE | 2022-11-04 16:36 | PC.NURSE ---
CHRISTINE FERREIRA PROVIDED PER ERP APPROVAL. PT IS AWAITING RETURN CALL FROM HOSPITALIST AT [place] AT THIS TIME. WILL CONTINUE TO MONITOR.
--- NOTE | 2022-11-04 17:17 | PC.NURSE ---
PT AND UPDATED ON STATUS. PT IS TO BE ADMITTED TO [address] [place] [address]. PT SIGNS PAPERWORK, AND BELONGINGS LIST COMPLETED. NAD NOTED. WILL CONTINUE TO MONITOR.
--- NOTE | 2022-11-06 10:53 | PC.NURSE ---
final culture report for urine received. no growth found. no change in treatment plan.
--- NOTE | 2022-11-06 12:18 | PC.NURSE ---
final blood and urine cultures reviewed. all negative for growth. no change in care plan.
--- NOTE | 2022-11-10 16:06 | PC.NURSE ---
final blood culture reports x2 reviewed. both sites negative for growth after 5 days. no change in plan of care.
== END 2022-11-04 18:03 | disposition short-term general hospital (02) ==
PROVIDERS: Emergency Provider Emergency Medicine
DX: N13.2 Hydronephrosis with renal and ureteral calculous obstruction (principal); E11.9 Type 2 diabetes mellitus without complications; E78.5 Hyperlipidemia, unspecified; K21.9 Gastro-esophageal reflux disease without esophagitis; Z79.84 Long term (current) use of oral hypoglycemic drugs
CPT/HCPCS: 36415; 74177; 80053; 81001; 83605; 83690; 84484; 85025; 85610; 85730; 86140; 87040; 87086; 93005; 96361; 96365; 96375; 96376; 99285; J0696; J1170; J1885; J2405; J7030; Q9967

== ENCOUNTER 2022-11-04 18:41 | Inpatient (IN) | payer MEDICARE, MEDICAID, SELFPAY ==
--- NOTE | ~2022-11-04 | XR_ITS ---
. EXAMINATION: XR abdomen/kub 1V DATE: 11/05/2022 11:43 INDICATION: Kidney stone. TECHNIQUE: A supine view of the abdomen on 2 radiographs was obtained. COMPARISON: CT abdomen and pelvis 11/04/2022 FINDINGS: There are no dilated loops of bowel. There is a 7 x 5 mm stone in right ureter at L4. There are changes of mesh ventral hernia repair. IMPRESSION: 1. 7 x 5 mm stone in right ureter at L4. Reviewed, dictated and finalized at location A. SALES CONSULTANT
--- NOTE | 2022-11-04 18:43 | PCCCNOTE ---
Called to [facility] spoke with Bev, she confirms that this patient (direct admit) just arrived.
--- NOTE | 2022-11-04 18:57 | ADMGEN ---
This patient, Mihaela Guadalupe, was admitted to 2 Medical Room 242-. Patient/family oriented to hospital policies and general routines including ID bracelet, bed and alarms, visiting hours, pain management, procedures, bathroom and other care routines, personal items, smoking policy, room service/diet, and visiting hours. Information on how to activate the Rapid Response Team has been discussed. Patient/Family are encouraged to report perceived risks to care and to ask questions if they do not understand what they are told or what they should do.
[2022-11-04 18:59] VITALS: BP 141/91; PULSE 78; RESP 16; TEMP 36.9; O2SAT 98; BMI 37.1
[2022-11-04 20:00] VITALS: BP 146/70; PULSE 78; RESP 20; TEMP 36.9; O2SAT 99
--- NOTE | 2022-11-04 20:00 | PM.IMHP ---
H&P: HPI History of Present Illness Date/Time: 11/04/22 20:00 Chief Complaint: Obstructing ureteral stone. Narrative: This is a pleasant 62-year-old female with history of kidney stones, dyslipidemia, diabetes, and GERD who is being directly admitted to the medical floor from the emergency department at the [facility] for definitive treatment after she was found to have an obstructing ureteral stone. She and her went out to dinner on Tuesday and later that evening she felt chilled and went to bed early. In the middle of the night she was wakened by pain in the right flank that she reports felt ?like a brick.? It has been constant since that time though seems to come and go in waves of intensity. She tried ibuprofen and heat which have not helped much. She has also had ongoing nausea and multiple episodes of emesis since that time. She denies fever, hematemesis, diarrhea, and dysuria. Her urine has been dark for the past [address] scan showed an obstructing 7 x 5 x 3 mm mid right ureteral stone with mild right hydroureteronephrosis and she is being admitted in this setting for supportive care and cystoscopy tomorrow per Urology. At the time my evaluation she is feeling a bit better though she recently vomited after receiving fentanyl. She goes on to say that she tolerates the fentanyl much better than morphine and dilaudid which, in addition to the nausea and vomiting, cause her significant headaches. Review of Systems Review of Systems: Twelve systems were reviewed and are negative except for as per HPI. [facility] Past Medical History Medical History (Updated 11/04/22 @ 21:50 by Rose Cortez PA-C) Dyslipidemia Gastroesophageal reflux disease Kidney stones Restless leg syndrome Surgical History Surgical History (Updated 11/04/22 @ 23:21 by Rose Cortez PA-C) History of appendectomy History of cardiac catheterization (2021) Clear coronaries per patient report. History of section Times for History of cholecystectomy History of hernia repair Multiple hernia repairs including some with mesh and some mesh has been removed as well. History of hysterectomy Family History Family History Father Diabetes mellitus Family history of cardiovascular disease Social History Social History (Updated 11/04/22 @ 23:22 by Rose Cortez PA-C) Social History: Surrogate medical decision maker: Cristhian Agrawal. Code status: Full code. Smoking status: Never smoker Alcohol intake: never Substance use: never Lack of Transportation: No Lack of Food: Never True Current Housing: I Have Housing Concerned About Future Housing: No Difficulty Paying Gas/Electric Bills: No Difficulty Paying for Meds: No Currently Unemployed: No Education: Associate Degree Difficulty w/ Childcare or Family Care: No Spiritual care concerns: No Meds Home Medications and Allergies Home Medications Medication Instructions Recorded Confirmed Type atorvastatin 40 mg tablet 40 mg PO DAILY 08/20/20 11/04/22 History clonazepam 0.5 mg tablet 1 mg PO HS 08/20/20 11/04/22 History fenofibrate nanocrystallized 48 mg 48 mg PO DAILY 08/20/20 11/04/22 History tablet pantoprazole 40 mg tablet,delayed 40 mg PO DAILY 08/20/20 11/04/22 History release pioglitazone 30 mg tablet 30 mg PO DAILY 08/20/20 11/04/22 History Allergies Allergy/AdvReac Type Severity Reaction Status Date / Time aspirin Allergy Unknown Unknown Verified 11/04/22 18:53 morphine Allergy Unknown Unknown Verified 11/04/22 18:53 procaine Allergy Unknown NOVOCAINE Verified 11/04/22 18:53 DOES NOTHING SURGICAL TAPE Allergy Severe BLISTERS Uncoded 11/04/22 18:53 Vital Signs Vital Signs - 24 hr 11/04/22 18:59 11/04/22 19:44 11/04/22 20:00 Temperature 98.4 F 98.4 F Pulse Rate 78 78 Respiratory Rate 16 20 Blood Pressure 141/91 H
[2022-11-04] MEDS: fentaNYL CITRATE INJ (*CRX) 100 MCG/2 ML VIAL 25 MCG IV PUSH (20:35)
[2022-11-04] MEDS: ONDANSETRON INJ 4 MG/2 ML VIAL IV PUSH (20:42)
[2022-11-04] MEDS: SODIUM CHLORIDE 0.9% IV 1,000 ML 100 ML IV CONT (23:32)
[2022-11-04 23:56] VITALS: BP 142/74; PULSE 71; RESP 20; TEMP 36.8; O2SAT 97
[2022-11-05] VITALS (13 sets, daily range): BP systolic 116–163; BP diastolic 60–90; PULSE 62–89; RESP 12–20; TEMP 36.1–36.9; O2SAT 95–100
[2022-11-05 00:11] LABS: Glucose Point of Care 161 mg/dl (65-105)
[2022-11-05 01:55] LABS: Hemoglobin A1C 6.2 % (<5.7)
--- NOTE | 2022-11-05 07:22 | WPDURCON ---
Assessment and Plan Assessment and plan (1) Hydronephrosis with urinary obstruction due to ureteral calculus: Code(s): N13.2 - Hydronephrosis with renal and ureteral calculous obstruction Status: Acute Assessment and Plan: Right ESWL Urology Consult Note HPI Date Seen: 11/05/22 Requesting Physician: Constantine Domingo MD Primary Care Provider: PAYROLL CONSULTANT PHYSICIAN Consult Narrative Narrative: Mihaela Guadalupe is a 62 year old female, transferred from [facility], the with a painful obstructing right mid ureteral calculus. She has had prior stones but has been several years. The in addition to the pain she is has had nausea but no fevers chills or gross hematuria. Imaging demonstrates a 6-7 mm right mid ureteral calculus. She was transferred here and, after discussion this morning, his opted for right ESWL. She is aware of the risk including, but not limited to, adverse cardiopulmonary events, need for additional procedures, hematuria and perinephric hematoma. Review of Systems Cardiovascular: Cardiovascular: Denies chest pain, Denies lightheadedness, Denies palpitations and Denies dyspnea Respiratory: Respiratory: Denies dyspnea Gastrointestinal: Gastrointestinal: Denies diarrhea, Denies nausea and Denies vomiting Genitourinary: Genitourinary: Denies hematuria and Denies dysuria Endocrine: Endocrine: Denies palpitations PMFSH Past Medical History Medical History (Updated 11/05/22 @ 00:00 by Rogelio Mast) Dyslipidemia Gastroesophageal reflux disease Kidney stones Restless leg syndrome Surgical History Surgical History (Updated 11/04/22 @ 23:21 by Rose Cortez PA-C) History of appendectomy History of cardiac catheterization (2021) Clear coronaries per patient report. History of section Times for History of cholecystectomy History of hernia repair Multiple hernia repairs including some with mesh and some mesh has been removed as well. History of hysterectomy Family History Family History Father Diabetes mellitus Family history of cardiovascular disease Social History Social History (Updated 11/04/22 @ 23:22 by Rose Cortez PA-C) Social History: Surrogate medical decision maker: Cristhian Agrawal. Code status: Full code. Smoking status: Never smoker Alcohol intake: never Substance use: never Lack of Transportation: No Lack of Food: Never True Current Housing: I Have Housing Concerned About Future Housing: No Difficulty Paying Gas/Electric Bills: No Difficulty Paying for Meds: No Currently Unemployed: No Education: Associate Degree Difficulty w/ Childcare or Family Care: No Spiritual care concerns: No Meds Home Medications and Allergies Home Medications Medication Instructions Recorded Confirmed Type atorvastatin 40 mg tablet 40 mg PO DAILY 08/20/20 11/04/22 History clonazepam 0.5 mg tablet 1 mg PO HS 08/20/20 11/04/22 History fenofibrate nanocrystallized 48 mg 48 mg PO DAILY 08/20/20 11/04/22 History tablet pantoprazole 40 mg tablet,delayed 40 mg PO DAILY 08/20/20 11/04/22 History release pioglitazone 30 mg tablet 30 mg PO DAILY 08/20/20 11/04/22 History Allergies Allergy/AdvReac Type Severity Reaction Status Date / Time aspirin Allergy Unknown Unknown Verified 11/04/22 18:53 morphine Allergy Unknown Unknown Verified 11/04/22 18:53 procaine Allergy Unknown NOVOCAINE Verified 11/04/22 18:53 DOES NOTHING SURGICAL TAPE Allergy Severe BLISTERS Uncoded 11/04/22 18:53 Vital Signs Vital Signs - 24 hr 11/04/22 18:59 11/04/22 19:44 11/04/22 20:00 Temperature 98.4 F 98.4 F Pulse Rate 78 78 Respiratory Rate 16 20 Blood Pressure 141/91 H 146/70 H Pulse Oximetry 98 99 Oxygen Delivery Room Air 11/04/22 23:56 11/05/22 03:30 Temperature 98.3 F 97.9 F Pulse Rate 71 76 Respiratory Rate 20 18 Blood Pressu
[2022-11-05 08:50] LABS: Glucose Point of Care 145 mg/dl (65-105)
--- NOTE | 2022-11-05 11:39 | PC.NURSE ---
to surgery via wheelchair
--- NOTE | 2022-11-05 11:57 | WPDANESEPPF ---
Anes - Initial Pre Proc Eval Procedure: Operation Date: 11/05/22 13:00 Proposed Procedures p Right Extracorporeal Shock Wave Lithotripsy - Dale Lee MD Date/Time: 11/05/22 11:57 Surgeon: Constantine Domingo MD Pre Op Diagnosis: Obstructing Kidney Stone Patient Data Age: 62 Gender: F Height: 1.63 m Weight: 100.7 kg Last Vital Signs Temp 36.8 C 11/05/22 10:28 Pulse 70 11/05/22 10:28 Resp 18 11/05/22 10:28 BP 117/66 11/05/22 10:28 Pulse Ox 97 11/05/22 10:28 O2 Del Method Room Air 11/05/22 08:15 Allergies Allergy/AdvReac Type Severity Reaction Status Date / Time aspirin Allergy Unknown Unknown Verified 11/04/22 18:53 morphine Allergy Unknown Unknown Verified 11/04/22 18:53 procaine Allergy Unknown NOVOCAINE Verified 11/04/22 18:53 DOES NOTHING SURGICAL TAPE Allergy Severe BLISTERS Uncoded 11/04/22 18:53 Home Medications Medication Instructions Recorded Confirmed Type atorvastatin 40 mg tablet 40 mg PO DAILY 08/20/20 11/04/22 History clonazepam 0.5 mg tablet 1 mg PO HS 08/20/20 11/04/22 History fenofibrate nanocrystallized 48 mg 48 mg PO DAILY 08/20/20 11/04/22 History tablet pantoprazole 40 mg tablet,delayed 40 mg PO DAILY 08/20/20 11/04/22 History release pioglitazone 30 mg tablet 30 mg PO DAILY 08/20/20 11/04/22 History Laboratory Tests 11/05/22 11/05/22 11/05/22 00:00 00:16 08:47 POC Capillary Glucose 161 mg/dl H mg/dl 145 mg/dl H mg/dl (65-105) (65-105) Hemoglobin A1c 6.2 % H % (<5.7) Patient hx anesthesia problems: none Family hx anesthesia problems: none Results Review: All pre-operative results and documents have been reviewed as part of the pre-operative evaluation. [facility] Past Medical History Medical History Dyslipidemia Gastroesophageal reflux disease Kidney stones Restless leg syndrome Surgical History Surgical History History of appendectomy History of cardiac catheterization (2021) Clear coronaries per patient report. History of section Times for History of cholecystectomy History of hernia repair Multiple hernia repairs including some with mesh and some mesh has been removed as well. History of hysterectomy Family History Family History Father Diabetes mellitus Family history of cardiovascular disease Social History Social History Social History: Surrogate medical decision maker: Cristhian Agrawal. Code status: Full code. Smoking status: Never smoker Alcohol intake: never Substance use: never Lack of Transportation: No Lack of Food: Never True Current Housing: I Have Housing Concerned About Future Housing: No Difficulty Paying Gas/Electric Bills: No Difficulty Paying for Meds: No Currently Unemployed: No Education: Associate Degree Difficulty w/ Childcare or Family Care: No Spiritual care concerns: No Anes - Eval Final PreProcedure Day of Procedure 11/05/22 11:57 Patient weight: obese Heart: regular rate and rhythm Lungs: clear to auscultation Airway: Mallampati scale class II Neurological: alert and oriented Last oral intake: >/= 8 hours ASA classification: III Emergent: no Anesthetic plan: proceed Anesthesia type and monitoring: general GIVS and standard monitoring Results Review: All pre-operative results and documents have been reviewed as part of the pre-operative evaluation. Informed Consent: The patient's anesthetic plan and its attendant risks and benefits were discussed with the patient/family/POA. Questions were solicited and answers provided to the satisfaction of the patient/family/POA.
[2022-11-05] MEDS: LACTATED RINGERS 1,000 ML 30 ML IV CONT (12:09)
--- NOTE | 2022-11-05 12:37 | W.PM.PROC2 ---
Procedure Note - Detailed Date of Procedure 11/05/22 Pre-op Diagnosis Obstructing Right Ureteral Stone Post-op Diagnosis Same Procedure Performed Right ESWL Surgeon Dale Lee MD Anesthesia General Description of Procedure The patient was brought to the operative suite where she was placed in the supine position on the Dornier lithotripsy table. The focal point of the lithotripter was placed at a 6-7mm right mid-ueteral calculus. A total of 3000 shocks were delivered at a power setting of 5. There appeared to be good fragmentation of the stone. The patient tolerated the procedure well and was taken to the recovery room in good condition. Urine Output 300 Drains No Packing No Pathology None sent Complications No immediate complications Condition Stable Disposition PACU
[2022-11-05 13:31] LABS: Glucose Point of Care 124 mg/dl (65-105)
--- NOTE | 2022-11-05 13:42 | SUR.PHASEI ---
1335 - blood glucose 124 in PACU
--- NOTE | 2022-11-05 14:15 | PC.NURSE ---
pt returned from surgery post-op
[2022-11-05] MEDS: ONDANSETRON INJ 4 MG/2 ML VIAL IV PUSH (14:23)
[2022-11-05] MEDS: fentaNYL CITRATE INJ (*CRX) 100 MCG/2 ML VIAL 25 MCG IV PUSH (14:29)
--- NOTE | 2022-11-05 15:38 | PM.IMPN ---
Progress Note: A&P Assessment and Plan (1) Hydronephrosis with urinary obstruction due to ureteral calculus: Code(s): N13.2 - Hydronephrosis with renal and ureteral calculous obstruction Status: Acute Assessment and Plan: Obstructing 7 x 5 x 3 mm mid right ureteral stone with mild right hydroureteronephrosis noted on CT scan. Urology consulted and patient underwent right ESWL today Strain all urine - send for stone analysis. (2) Urinary tract infection: Qualifiers: Urinary tract infection type: site unspecified Hematuria presence: with hematuria Qualified Code(s): N39.0 - Urinary tract infection, site not specified; R31.9 - Hematuria, unspecified Code(s): N39.0 - Urinary tract infection, site not specified Status: Acute Assessment and Plan: UA with 1+ leukocytes, no nitrates, trace bacteria, >75 RBC, 7-9 WBC. Patient started on Rocephin IV 1 gram Q24 hours. (3) Dyslipidemia: Code(s): E78.5 - Hyperlipidemia, unspecified Status: Chronic Assessment and Plan: Chronic, continue atorvastatin and fenofibrate (4) Restless leg syndrome: Code(s): G25.81 - Restless legs syndrome Status: Chronic Assessment and Plan: Chronic, takes clonazepam PO HS (5) Gastroesophageal reflux disease: Qualifiers: Esophagitis presence: without esophagitis Qualified Code(s): K21.9 - Gastro-esophageal reflux disease without esophagitis Code(s): K21.9 - Gastro-esophageal reflux disease without esophagitis Status: Chronic Assessment and Plan: Chronic, continue protonix (6) Diabetes mellitus: Qualifiers: Diabetes mellitus type: type 2 Diabetes mellitus bed bug exterminator insulin use: without bed bug exterminator use Diabetes mellitus complication status: without complication Qualified Code(s): E11.9 - Type 2 diabetes mellitus without complications Code(s): E11.9 - Type 2 diabetes mellitus without complications Status: Chronic Assessment and Plan: Chronic, patient takes Actos 30 mg daily at home. A1c 6.2% Initiate sliding scale insulin, Accu-Cheks, and hypoglycemic protocol. Plan CODE STATUS: FULL CODE Discharge destination: home when symptoms improve Time Spent With Patient Time with patient: 15 - 25 minutes Subjective Date/time seen: 11/05/22 15:38 Interval history: Patient lying in bed post-lithotripsy. She c/o moderate to severe RLQ aching pain radiating to her right flank. She states the pain is the same prior to admission. She has some nausea, but no emesis since getting fentanyl at the ED. She just received antiemetic IV and is currently getting IV fentanyl. Her is present at bedside and reports she has not been able to keep any food or drink down since Tuesday. Review of Systems Review of Systems: All systems reviewed & are unremarkable except as noted in HPI and below Exam Narrative: General: Mildly ill-appearing female lying in bed. HEENT: Normocephalic. PERRL, EOMI. Sclera anicteric. Dry mucous membranes. Neck: Supple. Respiratory: Lungs are clear to auscultation bilaterally. RR regular and unlabored. Cardiovascular: Regular rate and rhythm with S1-S2. No murmurs or gallops. Gastrointestinal: Abdomen soft and nondistended with positive bowel sounds. Tender to palpation in the right mid to lower back, right flank, and into the right lower quadrant. No guarding. Skin: Warm and dry. No rash or lesions. Fair, normal color for ethnicity. Extremities: No cyanosis, clubbing, or edema. Radial and pedal pulses +2 bilaterally. Neurological: Alert and oriented x3. Cranial nerves 2-12 are grossly intact. No gross focal deficits. Psychiatric: Pleasant and cooperative with normal mood and affect. Objective Data Vital Signs Vital Signs: Vital Signs - 24 hr 11/04/22 18:59 11/04/22 19:44 11/04/22 20:00 Temperature 98.4 F 98.4 F Pulse Rate 78 78 Respiratory Rate 16
[2022-11-05 18:43] LABS: Glucose Point of Care 156 mg/dl (65-105)
[2022-11-05] MEDS: clonazePAM (*CRX) 0.5 MG TABLET 1 MG PO (20:27)
[2022-11-05] MEDS: SODIUM CHLORIDE 0.9% IV 1,000 ML 100 ML IV CONT (20:29)
[2022-11-06] MEDS: fentaNYL CITRATE INJ (*CRX) 100 MCG/2 ML VIAL 25 MCG IV PUSH (03:38)
[2022-11-06] MEDS: ONDANSETRON INJ 4 MG/2 ML VIAL IV PUSH (03:39)
[2022-11-06] MEDS: SODIUM CHLORIDE 0.9% IV 1,000 ML 100 ML IV CONT (04:21)
[2022-11-06 05:19] VITALS: BP 120/59; PULSE 60; RESP 20; TEMP 37.1; O2SAT 97
[2022-11-06] MEDS: ATORVASTATIN 40 MG TABLET PO (08:26)
[2022-11-06] MEDS: PIOGLITAZONE HCL 30 MG TABLET PO (08:26)
[2022-11-06] MEDS: FENOFIBRATE,MICRONIZED 48 MG TABLET PO (08:27)
[2022-11-06] MEDS: PANTOPRAZOLE 40 MG TABLET PO (08:27)
[2022-11-06 08:57] LABS: Glucose Point of Care 108 mg/dl (65-105)
[2022-11-06 10:00] VITALS: BP 146/63; PULSE 56; O2SAT 98
[2022-11-06] MEDS: CEPHALEXIN 250 MG CAPSULE PO ×3 (11:14→23:05)
[2022-11-06] MEDS: HYDROcodone/acetaminophen (*CRX) 5-325 MG TABLET 1 TAB PO ×2 (11:21→16:13)
[2022-11-06 12:01] LABS: Glucose Point of Care 129 mg/dl (65-105)
[2022-11-06] MEDS: SENNA/DOCUSATE SODIUM TABLET 2 TAB PO (14:13)
[2022-11-06 15:15] VITALS: BP 121/72; PULSE 61; RESP 20; TEMP 35.9; O2SAT 95
--- NOTE | 2022-11-06 16:11 | WPDUROPN2 ---
Progress Note: A&P Assessment and Plan (1) Hydronephrosis with urinary obstruction due to ureteral calculus: Code(s): N13.2 - Hydronephrosis with renal and ureteral calculous obstruction Status: Acute Plan Status post right ureteral ESWL. She is feeling well with mild residual pain. -offered patient option of close our observation, additional imaging to assess residual stone disease, ureteral stent insertion or discharge home. -the patient to be discharged home today. I recommended the patient continue to drink plenty of fluids and strain her urine. She will call if she develops fevers chills nausea vomiting and severe pain. -plan follow-up in 1 to 2 weeks as scheduled with KUB to ensure stone passage Subjective Subjective Date/Time Seen: 11/06/22 16:11 Review of Systems Review of Systems: Patient with some right-sided flank pain. She states that she has passed blood and ?sand? since ESWL procedure Exam Narrative: Patient is awake and alert. She is in no acute distress. Her breathing is unlabored. Her abdomen is soft nontender nondistended Objective Data Vital Signs Vital Signs: Vital Signs - 24 hr 11/05/22 18:38 11/05/22 19:34 11/05/22 20:06 Temperature 36.7 C 36.9 C Pulse Rate 72 89 Respiratory Rate 18 20 Blood Pressure 128/90 139/73 Pulse Oximetry 95 95 Oxygen Delivery Room Air 11/05/22 23:50 11/06/22 05:19 11/06/22 08:29 Temperature 36.6 C 37.1 C Pulse Rate 70 60 Respiratory Rate 20 20 Blood Pressure 116/60 120/59 L Pulse Oximetry 96 97 Oxygen Delivery Room Air 11/06/22 10:00 11/06/22 15:15 Temperature 35.9 C L Pulse Rate 56 L 61 Respiratory Rate 20 Blood Pressure 146/63 H 121/72 Pulse Oximetry 98 95 Oxygen Delivery Intake/Output Intake/Output: Intake & Output 11/03/22 11/04/22 11/05/22 11/06/22 23:59 23:59 23:59 23:59 Intake Total 1680 2260 Output Total 1250 1600 Balance 430 660 Meds/Results Medications: Active Medications Generic Name Dose Route Start Last Admin Trade Name Freq PRN Reason Stop Dose Admin Acetaminophen 650 mg 11/06/22 07:44 Acetaminophen 325 Mg Tablet PO Q4H PRN Mild Pain (1-3) or Fever Hydrocodone Bitart/Acetaminophen 1 tab 11/06/22 10:03 11/06/22 11:21 Hydrocodone/Acetaminophen (*Crx) 5-325 Mg Tablet PO 1 tab Q4H PRN Administration Pain Rated 4-6 Atorvastatin Calcium 40 mg 11/05/22 09:00 11/06/22 08:26 Atorvastatin 40 Mg Tablet PO 40 mg DAILY MALCOLM Administration Cephalexin HCl 250 mg 11/06/22 12:00 11/06/22 11:14 Cephalexin 250 Mg Capsule PO 11/09/22 11:59 250 mg Q6HR MALCOLM Administration Clonazepam 1 mg 11/04/22 21:55 11/05/22 20:27 Clonazepam (*Crx) 0.5 Mg Tablet PO 1 mg HS MALCOLM Administration Dextrose 12.5 gm 11/04/22 21:50 Dextrose 50% 25 Gm/50 Ml Syringe IV PUSH PRN PRN Hypoglycemia Protocol Fenofibrate 48 mg 11/05/22 09:00 11/06/22 08:27 Fenofibrate,Micronized 48 Mg Tablet PO 48 mg DAILY MALCOLM Administration Fentanyl Citrate 25 mcg 11/04/22 20:24 11/06/22 03:38 Fentanyl Citrate Inj (*Crx) 100 Mcg/2 Ml Vial IV PUSH 25 mcg Q4H PRN Administration Pain Rated 7-10 Fentanyl Citrate 25 mcg 11/05/22 12:00 Fentanyl Citrate Inj (*Crx) 100 Mcg/2 Ml Vial IV PUSH Q2M PRN Pain Glucagon 1 mg 11/04/22 21:50 Glucagon For Inj 1 Mg Vial IM PRN PRN Hypoglycemia Protocol Glucose 15 gm 11/04/22 21:50 Glucose Oral Gel 15 Gm Of Glucse In 37.5 Gm Tube PO PRN PRN Hypoglycemia Protocol Dextrose 1,000 mls @ 100 mls/hr 11/04/22 21:50 Dextrose 5% 1,000 Ml IVPB PRN PRN Hypoglycemia Protocol Insulin Aspart 2 - 5 units 11/05/22 08:00 11/06/22 11:49 Insulin Aspart (*Bkc) 100 Units/Ml SUB-Q Not Given TIDWM MALCOLM Protocol Ondansetron HCl 4 mg 11/04/22 20:29 11/06/22 03:39 Ondansetron Inj 4 Mg/2 Ml Vial IV PUSH 4 mg Q6H
--- NOTE | 2022-11-06 16:29 | PM.IMPN ---
Progress Note: A&P Assessment and Plan (1) Hydronephrosis with urinary obstruction due to ureteral calculus: Code(s): N13.2 - Hydronephrosis with renal and ureteral calculous obstruction Status: Acute Assessment and Plan: Obstructing 7 x 5 x 3 mm mid right ureteral stone with mild right hydroureteronephrosis noted on CT scan. Urology consulted and patient underwent right ESWL 11/05/22 Strain all urine - send for stone analysis. Continue pain control with PO [place] PRN. Urology offered ureteral stent insertion, or additional imaging for residual stone disease. Patient declined and should follow up in 1-2 weeks per Urology recommendations. (2) Urinary tract infection: Qualifiers: Urinary tract infection type: site unspecified Hematuria presence: with hematuria Qualified Code(s): N39.0 - Urinary tract infection, site not specified; R31.9 - Hematuria, unspecified Code(s): N39.0 - Urinary tract infection, site not specified Status: Acute Assessment and Plan: UA with 1+ leukocytes, no nitrates, trace bacteria, >75 RBC, 7-9 WBC. Patient started on Rocephin IV 1 gram Q24 hours. Urine culture without growth. No urologic instrumentation done. 11/06/22 stop antibiotics. (3) Dyslipidemia: Code(s): E78.5 - Hyperlipidemia, unspecified Status: Chronic Assessment and Plan: Chronic, continue atorvastatin and fenofibrate (4) Restless leg syndrome: Code(s): G25.81 - Restless legs syndrome Status: Chronic Assessment and Plan: Chronic, takes clonazepam PO HS (5) Gastroesophageal reflux disease: Qualifiers: Esophagitis presence: without esophagitis Qualified Code(s): K21.9 - Gastro-esophageal reflux disease without esophagitis Code(s): K21.9 - Gastro-esophageal reflux disease without esophagitis Status: Chronic Assessment and Plan: Chronic, continue protonix (6) Diabetes mellitus: Qualifiers: Diabetes mellitus type: type 2 Diabetes mellitus skilled nursing insulin use: without skilled nursing use Diabetes mellitus complication status: without complication Qualified Code(s): E11.9 - Type 2 diabetes mellitus without complications Code(s): E11.9 - Type 2 diabetes mellitus without complications Status: Chronic Assessment and Plan: Chronic, patient takes Actos 30 mg daily at home. A1c 6.2% Initiate sliding scale insulin, Accu-Cheks, and hypoglycemic protocol. Glucose stable. (7) Dizziness: Code(s): R42 - Dizziness and giddiness Status: Acute Assessment and Plan: Patient c/o dizziness today when position changes. She denies nausea or emesis. No diaphoresis. She has some pain to her right abdomen and she has not been eating much today, per nursing. She has been drinking, however. Orthostatic vitals negative. She was noted to have HR drop to 52 bpm, but then rebounded up to 60s. ?valsalva with position changes due to concern for pain versus narcotic medications. No hypoglycemia. Check CBC, BMP and magnesium level. Plan CODE STATUS: FULL CODE Discharge destination: home when symptoms improve Time Spent With Patient Time with patient: 15 - 25 minutes Subjective Date/time seen: 11/06/22 16:29 Exam Narrative: General: tired appearing female lying in bed. HEENT: Normocephalic. Pupils equal and round. Sclera anicteric. Moist mucous membranes. Neck: Supple. Respiratory: Lungs are clear to auscultation bilaterally. RR regular and unlabored. Cardiovascular: Regular rate and rhythm with S1-S2. No murmurs or gallops. Gastrointestinal: Abdomen soft and nondistended with positive bowel sounds. Mildly tender to palpation in the right mid to lower back, right flank, and into the right lower quadrant. No guarding. Skin: Warm and dry. No rash or lesions. Generalized pallor. Extremities: No edema. Radial and pedal pulses +2 bilaterally. Neurological: Alert and orien
[2022-11-06 17:05] LABS: Hematocrit 32.5 % (37.0-47.0); Hemoglobin 10.6 g/dL (12.0-15.0); Mean Corpuscular HGB Conc 32.6 g/dl (32-36); Mean Corpuscular Hemoglobin 30.2 pg (26-34); Mean Corpuscular Volume 92.6 fl (80-100); Mean Platelet Volume 10.1 fl (7.4-10.4); Platelet Count Result 229 k/mm3 (150-375); Red Blood Count 3.51 M/mm3 (4.2-5.4); Red Cell Distribution Width 13.4 % (11.5-14.5)
[2022-11-06 17:08] LABS: Glucose Point of Care 124 mg/dl (65-105)
[2022-11-06 17:12] LABS: Anion Gap 6 mmol/L (8-16); Blood Urea Nitrogen 16 mg/dL (7-17); Calcium 8.5 mg/dL (8.4-10.2); Carbon Dioxide 25 mmol/L (22-30); Chloride 102 mmol/L (98-107); Estimated CRCL calculation 76 ml/min; Estimated Glomerular Filt Rate > 60; Glucose 122 mg/dL (65-110); Magnesium 1.8 mg/dL (1.6-2.3); Potassium 3.1 mmol/L (3.4-5.0); Sodium 133 mmol/L (137-145)
[2022-11-06] MEDS: POTASSIUM CHLORIDE 20 MEQ PACKET (FOR LIQUID) 40 MEQ PO (17:48)
[2022-11-06] MEDS: MECLIZINE HCL 25 MG TABLET PO (18:18)
[2022-11-06 20:03] VITALS: BP 124/68; PULSE 71; RESP 16; TEMP 36.4; O2SAT 96
[2022-11-06] MEDS: clonazePAM (*CRX) 0.5 MG TABLET 1 MG PO (20:21)
[2022-11-06 20:33] LABS: Glucose Point of Care 167 mg/dl (65-105)
[2022-11-07 00:10] LABS: Glucose Point of Care 140 mg/dl (65-105)
[2022-11-07 00:15] VITALS: BP 122/64; PULSE 71; RESP 20; TEMP 36.6; O2SAT 97
[2022-11-07] MEDS: CEPHALEXIN 250 MG CAPSULE PO (05:15)
[2022-11-07 05:32] VITALS: BP 105/57; PULSE 68; RESP 16; TEMP 37.2; O2SAT 98
[2022-11-07 05:39] LABS: Hematocrit 33.5 % (37.0-47.0); Hemoglobin 10.8 g/dL (12.0-15.0)
[2022-11-07 05:48] LABS: Anion Gap 5 mmol/L (8-16); Blood Urea Nitrogen 13 mg/dL (7-17); Calcium 8.5 mg/dL (8.4-10.2); Carbon Dioxide 24 mmol/L (22-30); Chloride 106 mmol/L (98-107); Estimated CRCL calculation 86 ml/min; Estimated Glomerular Filt Rate > 60; Glucose 113 mg/dL (65-110); Potassium 3.5 mmol/L (3.4-5.0); Sodium 135 mmol/L (137-145)
[2022-11-07 06:00] LABS: Glucose Point of Care 107 mg/dl (65-105)
--- NOTE | 2022-11-07 07:17 | PM.DS ---
DS: Admitting Diagnosis Discharge Date 11/07/2022 Admitting Diagnosis Right obstructing ureteral calculus Right hydronephrosis Possible UTI DS: Discharge Diagnosis Discharge Diagnosis (1) Hydronephrosis with urinary obstruction due to ureteral calculus: Code(s): N13.2 - Hydronephrosis with renal and ureteral calculous obstruction Status: Acute Assessment and Plan: Obstructing 7 x 5 x 3 mm mid right ureteral stone with mild right hydroureteronephrosis noted on CT scan. Urology consulted and patient underwent right ESWL 11/05/22 Strain all urine - send for stone analysis. Continue pain control with PO [place] PRN. Urology offered ureteral stent insertion, or additional imaging for residual stone disease. Patient declined and should follow up in 1-2 weeks per Urology recommendations. (2) Asymptomatic bacteriuria: Code(s): R82.71 - Bacteriuria Status: Acute Assessment and Plan: UA with 1+ leukocytes, no nitrates, trace bacteria, >75 RBC, 7-9 WBC. Patient started on Rocephin IV 1 gram Q24 hours. Urine culture without growth. No urologic instrumentation done. 11/07/22 stopped antibiotics. Flank pain secondary to ureteral stone passage. (3) Dyslipidemia: Code(s): E78.5 - Hyperlipidemia, unspecified Status: Chronic Assessment and Plan: Chronic, continue atorvastatin and fenofibrate (4) Dizziness: Code(s): R42 - Dizziness and giddiness Status: Acute Assessment and Plan: Patient c/o dizziness today when position changes. She denies nausea or emesis. No diaphoresis. She has some pain to her right abdomen and she has not been eating much today, per nursing. She has been drinking, however. Orthostatic vitals negative. She was noted to have HR drop to 52 bpm, but then rebounded up to 60s. ?valsalva with position changes due to concern for pain versus narcotic medications. No hypoglycemia. 11/06/22 CBC, BMP and magnesium level- unremarkable except for K 3.1 PRN meclizine PO added. Likely secondary to anesthesia from procedure. (5) Diabetes mellitus: Qualifiers: Diabetes mellitus complication status: without complication Diabetes mellitus senior living insulin use: without senior living use Diabetes mellitus type: type 2 Qualified Code(s): E11.9 - Type 2 diabetes mellitus without complications Code(s): E11.9 - Type 2 diabetes mellitus without complications Status: Chronic Assessment and Plan: Chronic, patient takes Actos 30 mg daily at home. A1c 6.2% Initiate sliding scale insulin, Accu-Cheks, and hypoglycemic protocol. Glucose stable. (6) Restless leg syndrome: Code(s): G25.81 - Restless legs syndrome Status: Chronic Assessment and Plan: Chronic, takes clonazepam PO HS (7) Gastroesophageal reflux disease: Qualifiers: Esophagitis presence: without esophagitis Qualified Code(s): K21.9 - Gastro-esophageal reflux disease without esophagitis Code(s): K21.9 - Gastro-esophageal reflux disease without esophagitis Status: Chronic Assessment and Plan: Chronic, continue protonix DS: Summary Hospital Course Reason for hospitalization: Right flank pain, obstructing ureteral stone Hospital Course: Mihaela Guadalupe is a 62-year-old female with history of kidney stones, dyslipidemia, diabetes, and GERD who was directly admitted to the medical floor from the emergency department at the [facility] for treatment of obstructing ureteral stone. She reported going out to dinner on Tuesday and later that evening she felt chilled and went to bed early. In the middle of the night, she was wakened by pain in the right flank that felt ?like a brick.? The pain was constant, but seemed to come and go in waves of intensity. She tried ibuprofen and heat which were not effective. She has also had ongoing nausea and multiple episodes of emesis. She denied fever, hemateme
[2022-11-07] MEDS: HYDROcodone/acetaminophen (*CRX) 7.5-325 MG TABLET 1 TAB PO (07:53)
[2022-11-07] MEDS: MECLIZINE HCL 25 MG TABLET PO (07:55)
[2022-11-07] MEDS: ATORVASTATIN 40 MG TABLET PO (08:24)
[2022-11-07] MEDS: FENOFIBRATE,MICRONIZED 48 MG TABLET PO (08:24)
[2022-11-07] MEDS: PIOGLITAZONE HCL 30 MG TABLET PO (08:24)
[2022-11-07] MEDS: PANTOPRAZOLE 40 MG TABLET PO (08:24)
[2022-11-07] MEDS: SENNA/DOCUSATE SODIUM TABLET 2 TAB PO (08:27)
[2022-11-07 09:17] LABS: Glucose Point of Care 120 mg/dl (65-105)
== END 2022-11-07 13:00 | disposition home or self-care (01) | DRG 694 ==
PROVIDERS: Physician Assistant; Urology; Admitting Provider Chiropractor; PCP Family Medicine; Visit Provider Nurse Practitioner Family
PROC: 0TC68ZZ Extirpation of Matter from Right Ureter, Via Natural or Artificial Opening Endoscopic (ICD-10-PCS; CPT 50590; principal; 2022-11-05 13:00)
DX: N13.2 Hydronephrosis with renal and ureteral calculous obstruction (principal); K21.9 Gastro-esophageal reflux disease without esophagitis; G25.81 Restless legs syndrome; E78.5 Hyperlipidemia, unspecified; E11.9 Type 2 diabetes mellitus without complications; R82.71 Bacteriuria; R42 Dizziness and giddiness; Z88.5 Allergy status to narcotic agent; Z79.899 Other long term (current) drug therapy; Z88.6 Allergy status to analgesic agent; Z83.3 Family history of diabetes mellitus; Z82.49 Family history of ischemic heart disease and other diseases of the circulatory system
CPT/HCPCS: 36415; 74018; 80048; 82948; 83036; 83735; 85014; 85018; 85027; 96361; 96374; 96375; 96376; A9270; G0378; G0379; J0131; J0696; J1100; J1200; J2250; J2405; J2704; J3010; J7030; J7120

== ENCOUNTER 2022-11-23 14:52 | Outpatient (CLI) | payer MEDICARE, MEDICAID, SELFPAY ==
--- NOTE | ~2022-11-23 | XR_ITS ---
XR abdomen/kub 1V 11/23/2022 15:16 INDICATION: Right ureteral stone TECHNIQUE: KUB COMPARISON: 11/05/2022 FINDINGS: Bowel gas pattern is normal. There is no evidence of free air, mass, organomegaly, ascites or obstruction. No abnormal calculi are seen. The bones appear intact. There are changes of previo us ventral hernia repair. IMPRESSION: 1: No acute abdominal abnormality identified. 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
== END 2022-11-23 14:53 | disposition home or self-care (01) ==
LOC: CHSIMG 14:56
PROVIDERS: PCP Family Medicine; Visit Provider Urology
DX: N20.1 Calculus of ureter (principal)
CPT/HCPCS: 74018

== ENCOUNTER 2023-01-31 15:21 | Outpatient (CLI) | payer MEDICARE, MEDICAID, SELFPAY ==
--- NOTE | ~2023-01-31 | XR_ITS ---
XR knee LT 3V 01/31/2023 15:52 INDICATION: Left knee pain after fall PROCEDURE: 3 views left knee COMPARISON: 06/18/2020 FINDINGS: Fracture, dislocation or subluxation is not identified. There is mild osteoarthritis. No si gnificant joint effusion. Osteopenia. The soft tissues appear within normal limits. No foreign martha s are identified. IMPRESSION: 1: NO ACUTE BONE OR JOINT ABNORMALITY IDENTIFIED. Reviewed, dictated and finalized at location B.
== END 2023-01-31 15:22 | disposition home or self-care (01) ==
LOC: CHSIMG 15:23
PROVIDERS: PCP Family Medicine; Visit Provider Family Medicine
DX: M25.562 Pain in left knee (principal)
CPT/HCPCS: 73562

== ENCOUNTER 2023-02-07 13:00 | Outpatient (RCR) | payer MEDICARE, MEDICAID, SELFPAY ==
--- NOTE | 2023-02-07 13:35 | PTOPEVAL1 ---
Assessment and note entered by Constantine Wood Evaluation Information Assessment Status Evaluation Diagnosis left knee pain Onset 01/21/23 Subjective Information Pt. reports that she was stepping up on her deck and fell onto her left knee. She states that she initially thought she broke her knee cap, but it was negative. she reports that pain is on the front of the knee and is constant. She reports that she did have knee pain prior to the fall and it has worsened since the fall. she reports noticing frequent popping in the left knee. Pt. reports that her pain is increased with standing, walking and steps. She reports that her goal for PT is to decrease her knee pain. Reported Pain Level Pain Score 7: Self Report Assessment PT Clinical Summary Pt. is a 62 year old female who enters the clinic with left knee pain. She presents with indiciations of left patellofemoral syndrome. She presents with impaired gait, impaired left knee ROM, impaired strength, and pain. Continued skilled PT is indicated in order to improve these areas to allow the pt. to be able to complete all IADL's with improved comfort. Plan of Care Interventions Electrical Stimulation,Hot Pack/Cold Pack,Manual Therapy,Neuro Re-education,Patient/Caregiver Educati,Therapeutic Activities,Therapeutic Exercise,Self-Care/Home Management PT Services Indicated Yes Treatment Frequency and 2x/week x 8 visits Duration These treatments will address the objective and functional deficits as defined above. The patient will be advanced safely and appropriately in order for the patient to progress towards his/her prior level of function. Additional exercises will be introduced and as well as a comprehensive home exercise program upon discharge, if needed, ?to ensure carryover of functional gains achieved in the clinic. This treatment plan has been reviewed and agreement upon by the patient.
--- NOTE | 2023-03-10 12:03 | PTOPDC ---
Assessment and note entered by JT File, PT Evaluation Information Assessment Status Evaluation Diagnosis left knee pain Onset 01/21/23 Subjective Information patient reports the L LE feels stronger, but she still has popping and pain in the L knee. she reports continues to have increased pain with being up on her feet all day. she reports she still has to use the R LE to lead when walking up and down steps due to pain with attempting to lead with the L. 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 she continues to present with pain in the L knee, but reports she does not want any inections or needles. she reports she is also not ready for knee replacement . she reports she is better than when she started therapy and is happy with her progress. she has met several goals through therapy, including those for rom, strength, and flexibility. she will continue HEP independent at home and DC skilled PT today. Plan of Care PT Services Indicated Yes
== END 2023-03-10 15:24 | disposition home or self-care (01) ==
LOC: CHSPT 13:00
PROVIDERS: PCP Family Medicine; Visit Provider Family Medicine
DX: M25.562 Pain in left knee (principal)
CPT/HCPCS: 97014; 97110; 97161; 97530; G0283

== ENCOUNTER 2023-03-10 09:03 | Outpatient (CLI) | payer MEDICARE, MEDICAID, SELFPAY ==
--- NOTE | ~2023-03-10 | MR_ITS ---
MRI of the left knee Clinical history: Pain Technique: Coronal proton density and proton density-weighted images, sagittal proton-density and T2 fat-sat images, and axial proton-density fat-saturated images were acquired. Findings: Anterior and posterior cruciate ligaments are intact. Medial collateral ligament and the la teral collateral ligament complex are intact. Popliteus tendon is intact. Medial and lateral menisci are intact, without evidence of tear. There is diffuse moderate chondromalacia of the medial femoral condyle. There is also diffuse moderat e chondromalacia the femoral trochlea. There is moderate to high-grade chondromalacia extensively inv olving the medial patellar facet, extending to the patellar apex. Minimal tricompartmental osteophyte s are present. Extensor mechanism is intact. No significant joint effusion or Oneil's cyst. Impression: Mild to moderate tricompartmental degenerative change, as detailed above. No ligamentous injury or meniscal tear. Reviewed, dictated and finalized at [facility]. Impression: Mild to moderate tricompartmental degenerative change, as detailed above. No ligamentous injury or meniscal tear.
== END 2023-03-10 09:04 | disposition home or self-care (01) ==
LOC: CHSIMG 09:05
PROVIDERS: PCP Family Medicine; Visit Provider Family Medicine
DX: M25.562 Pain in left knee (principal)
CPT/HCPCS: 73721

== ENCOUNTER 2023-11-09 12:17 | Outpatient (CLI) | payer MEDICARE, MEDICAID, SELFPAY ==
--- NOTE | ~2023-11-09 | US_ITS ---
EXAMINATION: US arterial ankle brachial ind DATE: 11/09/2023 12:53 INDICATION: Peripheral arterial disease. Absent pedal pulses. TECHNIQUE: Segmental pressures and plethysmographic and Doppler waveforms of the brachial and lower e xtremity arteries were obtained. COMPARISON: None. FINDINGS: Right and left brachial artery pressures of 119 mm Hg and 123 mm Hg, respectively, are concordant (no rmal difference <= 30 mmHg). The right ankle-brachial index (MARY) is 149 (normal >= 0.9-1.0). The right great toe-brachial index ( TBI) is 0.86 (normal >= 0.65). Arterial Doppler waveforms are biphasic in posterior tibial artery and triphasic in dorsalis pedis. The left MARY is 1.28. The left TBI is 0.97. Arterial Doppler waveforms are triphasic at the ankle. IMPRESSION: 1. No significant arterial occlusive disease. 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
== END 2023-11-09 12:18 | disposition home or self-care (01) ==
LOC: CHSIMG 12:19
PROVIDERS: PCP Family Medicine; Visit Provider Family Medicine
DX: R09.89 Other specified symptoms and signs involving the circulatory and respiratory systems (principal)
CPT/HCPCS: 93922

== ENCOUNTER 2024-01-13 10:04 | Outpatient (CLI) | payer MEDICARE, MEDICAID, SELFPAY ==
--- NOTE | ~2024-01-13 | XR_ITS ---
Supine and upright views of the abdomen Clinical history: Abdominal pain Findings: Bowel gas pattern is nonspecific. Evidence of prior herniorrhaphy. No evidence for obstruct ion or free air. No abnormal mass lesion or calcification is seen. Osseous structures are intact. Impression: No acute abnormality. Reviewed, dictated and finalized at [facility]. Impression: No acute abnormality.
--- NOTE | ~2024-01-13 | CT_ITS ---
EXAMINATION: CT abdomen pelvis wo con DATE: 01/13/2024 10:31 INDICATION: Right flank pain. Nausea. Hematuria. TECHNIQUE: Computed tomography (CT) of the abdomen and pelvis was performed without intravenous contr ast. Automated exposure control and iterative reconstruction technique were employed. Exam dose: 109 5.29 mGy-cm total exam DLP. COMPARISON: 01/13/2024 KUB 11/04/2022 CT abdomen pelvis FINDINGS: The lung bases are clear. Included portions of the liver and spleen are unremarkable. Status post cholecystectomy. No bile duct or pancreatic duct dilatation. No pancreatic mass lesion or calcification. Normal morphology of the adrenal glands. No renal mass lesion or urinary tract calculus or hydroureteronephrosis is detected. Normal caliber of the abdominal aorta. Up to 12.6 x 17.3 mm left periaortic lymph nodes, chronic; otherwise no intraperitoneal or retroperit sargent or pelvic mass lesion or adenopathy or ascites. The urinary bladder is unremarkable. Status post hysterectomy. Status post appendectomy. No bowel obstruction, bowel wall thickening, pneumatosis or intraperitoneal free air. Status post ventral abdominal wall surgical repair. IMPRESSION: No urinary tract calculus or hydroureteronephrosis Nonspecific chronic mild left periaortic lymphadenopathy Status post cholecystectomy Status post appendectomy Status post hysterectomy Status post ventral abdominal wall surgical repair Reviewed, dictated and finalized at Location A. Reviewed, dictated and finalized at location B.
== END 2024-01-13 10:05 | disposition home or self-care (01) ==
LOC: CHSIMG 10:07
PROVIDERS: PCP Family Medicine; Visit Provider Nurse Practitioner Family
DX: R10.9 Unspecified abdominal pain (principal); Z98.890 Other specified postprocedural states; R59.0 Localized enlarged lymph nodes
CPT/HCPCS: 74018; 74176

== ENCOUNTER 2024-11-21 12:04 | Emergency (ER) | payer MEDICARE, MEDICAID, SELFPAY ==
--- NOTE | ~2024-11-21 | XR_ITS ---
XR chest 1V portable 11/21/2024 12:47 Indication: Nonproductive cough and fever Procedure: AP portable chest Comparison: 03/20/2019 Findings: Subtle right basilar infiltrates. There is subsegmental atelectasis/scarring left mid thora x. No pleural effusion, edema or pneumothorax. Impression: 1: New subtle right basilar infiltrates may represent atelectasis or developing pneumonia. Reviewed, dictated and finalized at location A. T STOCKMAN Impression: 1: New subtle right basilar infiltrates may represent atelectasis or developing pneumonia.
[2024-11-21 12:04] VITALS: BP 124/74; PULSE 87; RESP 20; TEMP 36.6; O2SAT 93
--- NOTE | 2024-11-21 12:25 | ED_ITS ---
HPI - Nausea/Vomiting/Diarrhea General Chief complaint: Nausea/Vomiting/Diarrhea Stated complaint: N-V-D Time Seen by Provider: 11/21/24 12:14 Source: patient Mode of arrival: ambulatory Limitations: no limitations History of Present Illness HPI Narrative: 64-year-old female with a history of diabetes mellitus, dyslipidemia, kidney stone status post right ESWL, RLS, GERD, negative cardiac catheterization presents with a 3 day history of -- fever with chills -- nausea with 3 episodes of vomiting. Diffuse abdominal pain. no diarrhea -- Headache/body ache -- nonproductive cough she took a home COVID test which was noted to be negative. MD elicited complaint: nausea, vomiting and abdominal pain Onset (ago): day(s) ( 3 days) Associated nausea: Yes Associated abdominal pain: Yes Location of pain: diffuse Pain consistency: constant Severity: mild Quality: aching Exacerbating factors: none Relieving factors: none Associated symptoms: cough, fever/chills, headaches, nausea/vomiting and weakness Related Data Home Medications ?Medication ?Instructions ?Recorded ?Confirmed ?Last Taken ?Type atorvastatin 40 mg tablet 40 mg PO DAILY 08/20/20 11/04/22 Unknown History clonazepam 0.5 mg tablet 1 mg PO HS 08/20/20 11/04/22 Unknown History fenofibrate nanocrystallized 48 mg 48 mg PO DAILY 08/20/20 11/04/22 Unknown History tablet pantoprazole 40 mg tablet,delayed 40 mg PO DAILY 08/20/20 11/04/22 Unknown History release pioglitazone 30 mg tablet 30 mg PO DAILY 08/20/20 11/04/22 Unknown History Allergies Allergy/AdvReac Type Severity Reaction Status Date / Time aspirin Allergy Unknown Unknown Verified 11/21/24 12:12 morphine Allergy Unknown Unknown Verified 11/21/24 12:12 procaine Allergy Unknown NOVOCAINE Verified 11/21/24 12:12 DOES NOTHING SURGICAL TAPE Allergy Severe BLISTERS Uncoded 11/21/24 12:12 Review of Systems 2 Review of Systems: All systems reviewed & are unremarkable except as noted in HPI and below Constitutional: Constitutional: Reports as per HPI and Reports no additional constitutional complaints Eyes: Eyes: Reports as per HPI and Reports no additional eye complaints ENT: Reports system reviewed and no additional complaints, except as documented and Reports sore throat Cardiovascular: Cardiovascular: Reports as per HPI and Reports no additional cardiovascular complaints Respiratory: Respiratory: Reports as per HPI, Reports no additional respiratory complaints and Reports cough Gastrointestinal: Gastrointestinal: Reports as per HPI, Reports no additional gastrointestinal complaints, Reports abdominal pain, Reports nausea and Reports vomiting Genitourinary: Genitourinary: Reports no additional female genitourinary complaints and Reports as per HPI Musculoskeletal: Musculoskeletal: Reports no additional musculoskeletal complaints, Reports as per HPI and Reports myalgias Integumentary/Breasts: Skin/Breast: Reports system reviewed and no additional complaints, except as docu and Reports as per HPI Neurologic: Reports system reviewed and no additional complaints, except as documented and Reports as per HPI Psychiatric: Psychiatric: Reports no additional psychiatric complaints and Reports as per HPI Endocrine: Endocrine: Reports no additional endocrine complaints and Reports as per HPI Hematologic/Lymphatic: Hematologic/Lymphatic: Reports no additional hematologic/lymphatic complaints and Reports as per HPI Allergic/Immunologic: Allergic/Immunologic: Reports no additional allergic/immunologic complaints and Reports as per HPI PMFSH Past Medical History Medical History Diabetes mellitus Restless leg syndrome Dyslipidemia Kidney stones Gastroesophageal reflux disease Surgical History Surgical History History of cardiac catheterization (2021) Clear coronaries per patient report. History of hysterectomy History of appendectomy History of cholecystectomy History of section Times for History of hernia repair Multiple hernia repairs including some with mesh and some mesh has been removed as well. Family History Family History Father Diabetes mellitus Family history of cardiovascular disease Social History Social History Social History: Surrogate medical decision maker: Cristhian Agrawal. Code status: Full code. Smoking status: Never smoker Alcohol intake: never Substance use: never Lack of Transportation: No Lack of Food: Never True Current Housing: I Have Housing Concerned About Future Housing: No Difficulty Paying Gas/Electric Bills: No Difficulty Paying for Meds: No Currently Unemployed: No Education: Associate Degree Difficulty w/ Childcare or Family Care: No Living arrangements: with family Spiritual care concerns: No Exam 2 Narrative: afebrile. Vital stable Const: General: ill appearing Nutritional Appearance: well nourished O rientation/consciousness: patient oriented x3 Limitations: no limitations HENMT: Head: normal to inspection Ears: external ears normal F jyoti/Nose/Sinus: Normal external nose present Face and sinus: normal facial exam Mouth: Yes Normal oral and palatal mucosa present Throat: posterior oropharynx normal Eyes: Conjunctivae: conjunctivae normal Cornea: corneas normal Pupils: E qual, round and reactive pupils present EOM: EOMs intact bilaterally D irect Ophthalmoscopy: no photophobia Neck: Neck: normal visual inspection, no lymphadenopathy and no meningeal signs Chest: Chest palpation & inspection: normal inspection of the chest Resp: Effort & Inspection: normal respiratory effort Auscultation: clear to auscultation bilaterally Cardio: Rate: regular rate Rhythm: regular rhythm GI: GI Palp: Yes Soft to palpation Auscultation: normal bowel sounds O ther: no tenderness/rigidity /rebound. : General: Yes no CVA tenderness Back/Spine/Pelvis: Back: no CVA tenderness Skin: General skin exam: normal color Rashes: no rashes Wounds: no wounds Neuro: General: patient oriented x3, moves all extremities, no meningeal signs, no focal motor deficits and CN's II-XI intact bilaterally Cranial nerves: Yes Nystagmus not present Speech: normal speech Extrem: General: normal to inspection and no clubbing, cyanosis or edema Psych: Mental Status: mental status grossly normal Affect: normal affect Attitude: cooperative Course Course Emergency Course: Upper respiratory tract infection.-- patient tested positive for influenza A. questionable right lower lobe infiltrate nausea/vomiting Vital Signs Vital signs: Vital Signs Temperature 36.6 C 11/21/24 12:04 Pulse Rate 87 11/21/24 12:04 Respiratory Rate 11/21/24 12:04 Blood Pressure 124/74 11/21/24 12:04 Pulse Oximetry 93 11/21/24 12:04 Oxygen Delivery Room Air 11/21/24 12:04 Temperature 36.6 C 11/21/24 12:04 Pulse Rate 87 11/21/24 12:04 Respiratory Rate 20 11/21/24 12:04 Blood Pressure 124/74 11/21/24 12:04 Pulse Oximetry 93 11/21/24 12:04 Oxygen Delivery Room Air 11/21/24 12:04 MDM - Nausea/Vomiting/Diarrhea MDM Narrative Medical decision making narrative: influenza a nausea/vomiting right lower lobe atelectasis/infiltrate Differential Diagnosis Differential diagnosis: Likely other ( viral infection, COVID,) Medical Records Attestation: I reviewed the patient's medical records. Lab Data Attestation: I reviewed the patient's lab results. 11/21/24 12:39 11/21/24 12:39 Labs: Lab Results 11/21/24 11/21/24 11/21/24 Range/Units 12:28 12:30 12:39 WBC 5.9 (4.8-10.8) K/mm3 RBC 4.29 (4.20-5.40) M/mm3 Hgb 12.6 (12.0-15.0) g/dL Hct 38.5 (35.0-49.0) % MCV 89.7 (78.0-102.0) fL MCH 29.4 (27.0-31.0) pg MCHC 32.7 (32-36) g/dL RDW 13.7 (11.6-14.4) % Plt Count 156 (150-420) K/mm3 MPV 10.3 (9.2-11.8) fl Immature Gran % (Auto) Scientific Programmer Analyst Neut % (Auto) Scientific Programmer Analyst Lymph % (Auto) Scientific Programmer Analyst [place] % (Auto) Scientific Programmer Analyst Eos % (Auto) Scientific Programmer Analyst Baso % (Auto) Scientific Programmer Analyst Lymph # (Auto) Scientific Programmer Analyst [place] # (Auto) Scientific Programmer Analyst Eos # (Auto) Scientific Programmer Analyst Baso # (Auto) Scientific Programmer Analyst Abs Immat Gran (auto) Scientific Programmer Analyst Absolute Neuts (auto) Scientific Programmer Analyst Absolute Nucleated RBC Scientific Programmer Analyst Total Counted 100 Neutrophils % (Manual) 76 H (46-73) % Band Neutrophils % 0 (0-6) % Lymphocytes % (Manual) 15 L (18-44) % Monocytes % (Manual) 9 (3-9) % Nucleated RBC % Scientific Programmer Analyst Abs Neuts (Manual) 4.48 (1.7-7.2) K/mm3 Abs Lymphs (Manual) 0.88 L (1.1-4.5) K/mm3 Abs Monocytes (Manual) 0.53 (0.1-0.90) K/mm3 Platelet Estimate Adequate (Adequate) Schistocytes Not Reportable Sodium 136 (136-145) mmol/L Potassium 3.6 (3.5-5.1) mmol/L Chloride 99 (98-108) mmol/L Carbon Dioxide 25 (21-32) mmol/L Anion Gap 12 (4-12) mmol/L BUN 23 H (7-18) mg/dL Creatinine 0.97 (0.55-1.02) mg/dL Estim Creat Clear Calc 61 ml/min Estimated GFR 58 L (59 - ) Glucose 167 H (70-99) mg/dL Calculated Osmolality 289 (285-295) mOsm/kg Lactic Acid 0.9 (0.4-2.0) mmol/L Calcium 8.6 (8.5-10.1) mg/dL Total Bilirubin 0.6 (0.00-1.00) mg/dL AST 28 (15-37) U/L ALT 30 (14-59) U/L Alkaline Phosphatase 61 (46-116) U/L Total Protein 7.4 (6.4-8.2) g/dL Albumin 3.7 (3.4-5.0) g/dL Lipase 64 (16-77) U/L Urine Color Yellow (Yellow) Urine Appearance Clear (Clear) Urine pH 5.5 (5.0-8.0) Ur Specific [place] >= 1.030 H (1.010-1.020) Urine Protein 1+ H (Negative) Urine Glucose (UA) Negative (Negative) Urine Ketones Negative (Negative) Ur Blood (Man) Negative (Negative) Urine Nitrate Negative (Negative) Urine Bilirubin Negative (Negative) Urine Urobilinogen 0.2 (0.2-1.0) mg/dL Leukocyte Esterase Rfl Negative (Negative) LAUREL/UL Urine RBC None seen (0-2) /hpf Urine WBC 4-6 H (0-3) /hpf Ur Squamous Epith Cells Rare (Few) /hpf Urine Bacteria 1+ H (None) /hpf Urine Mucus Moderate H /lpf Influenza A (RT-PCR) Positive A (Negative) Influenza B (RT-PCR) Negative (Negative) RSV (RT-PCR) Negative (Negative) SARS-CoV-2 RNA (RT-PCR) Negative (Negative) Discharge Plan Discharge Clinical Impression: Influenza A Pneumonia Qualifiers: Pneumonia type: due to unspecified organism Laterality: right Lung location: l ower lobe of lung Qualified Code(s): J18.9 - Pneumonia, unspecified organism Patient Disposition: Home, Self-Care Condition: Stable Instructions: Antibiotic Form, Influenza (ED), Pneumonia (ED) Patient Language: [place] Prescriptions: New oseltamivir [Tamiflu] 75 mg capsule 75 mg PO Q12H 5 Days Qty: 10 0RF azithromycin [Zithromax] 250 mg tablet See Rx Instructions .ROUTE .COMPLEX Qty: 6 0RF Rx Instructions: For 250 mg dose pack: take 500 mg today (day 1), then 250 mg for 4 days (days 2-5) No Action atorvastatin 40 mg tablet 40 mg PO DAILY clonazepam 0.5 mg tablet 1 mg PO HS pantoprazole 40 mg tablet,delayed release (DR/EC) 40 mg PO DAILY pioglitazone 30 mg tablet 30 mg PO DAILY fenofibrate nanocrystallized 48 mg tablet 48 mg PO DAILY hydrocodone-acetaminophen 5-325 mg Tablet 1 tablet PO Q4-6H PRN (Reason: Pain Rated 4-6) Qty: 15 0RF Rx Instructions: May take 1-2 tablets every 4-6 hours if needed for pain meclizine 25 mg Tablet 12.5 mg PO .q8 PRN (Reason: dizziness or vertigo) Qty: 14 0RF Rx Instructions: May take one-half (1/2) to one tablet every 8 hours as needed for dizziness. Follow-up/Referrals: German Cornelius MD [Primary Care Provider] - Time of Disposition: 13:36
[2024-11-21] MEDS: ONDANSETRON HCL ODT 4 MG TABLET PO (12:32)
[2024-11-21 12:43] LABS: Hematocrit 38.5 % (35.0-49.0); Hemoglobin 12.6 g/dL (12.0-15.0); Mean Corpuscular HGB Conc 32.7 g/dL (32-36); Mean Corpuscular Hemoglobin 29.4 pg (27.0-31.0); Mean Corpuscular Volume 89.7 fL (78.0-102.0); Mean Platelet Volume 10.3 fl (9.2-11.8); Platelet Count Result 156 K/mm3 (150-420); Red Blood Count 4.29 M/mm3 (4.20-5.40); Red Cell Distribution Width 13.7 % (11.6-14.4); White Blood Count 5.9 K/mm3 (4.8-10.8)
[2024-11-21 12:56] LABS: Band Neutrophils Percent 0 % (0-6); Lymphocytes Absolute Manual 0.88 K/mm3 (1.1-4.5); Lymphocytes Percent Manual 15 % (18-44); Monocytes Absolute Manual 0.53 K/mm3 (0.1-0.90); Monocytes Percent Manual 9 % (3-9); Neutrophils Absolute Manual 4.48 K/mm3 (1.7-7.2); Neutrophils Percent Manual 76 % (46-73); Platelet Estimate Adequate (Adequate); Total Cells Counted 100
[2024-11-21 12:59] LABS: Add Urine Microscopic? YES; Appearance Urine Clear (Clear); Bilirubin Urine Negative (Negative); Blood Urine Negative (Negative); Color Urine Yellow (Yellow); Glucose Urine UA Negative (Negative); Ketones Urine Negative (Negative); Leukocyte Esterase Ur Negative LEU/UL (Negative); Nitrate Urine Negative (Negative); Protein Urine 1+ (Negative); Specific Grav Ur >= 1.030 (1.010-1.020); Urobilinogen Urine 0.2 mg/dL (0.2-1.0); pH Urine 5.5 (5.0-8.0)
[2024-11-21 13:00] LABS: Alanine Aminotransferase 30 U/L (14-59); Albumin Level 3.7 g/dL (3.4-5.0); Alkaline Phosphatase 61 U/L (46-116); Anion Gap 12 mmol/L (4-12); Aspartate Amino Transferase 28 U/L (15-37); Bilirubin,Total 0.6 mg/dL (0.00-1.00); Blood Urea Nitrogen 23 mg/dL (7-18); Calcium 8.6 mg/dL (8.5-10.1); Carbon Dioxide 25 mmol/L (21-32); Chloride 99 mmol/L (98-108); Estimated CRCL calculation 61 ml/min; Estimated Glomerular Filt Rate 58; Glucose 167 mg/dL (70-99); Lipase 64 U/L (16-77); Osmolality Calculated 289 mOsm/kg (285-295); Potassium 3.6 mmol/L (3.5-5.1); Sodium 136 mmol/L (136-145); Total Protein 7.4 g/dL (6.4-8.2)
[2024-11-21 13:02] LABS: Lactic Acid Reflex 0.9 mmol/L (0.4-2.0)
[2024-11-21 13:06] LABS: Bacteria Urine 1+ /hpf; Mucus Urine Moderate /lpf; RBC Urine None seen /hpf (0-2); Squamous Epithelial Cell Urine Rare /hpf (Few)
--- OUTSIDE RECORDS SUMMARY | 2024-11-21 13:07 | XMS_ITS | Patient Health Summary ---
Author Organization [facility] Address [address] [place] [address] Care Team Providers Care Assistance Representative Name Role Phone German Cornelius MD Primary Care Provider [phone] Note from [facility],non-owned Affiliates and Associated Physician Practices is amultiple site organization consisting of ambulatory clinics and hospital sitesin [place], [place], [place] and [place]. This disclosure is being madepursuant to the Care Everywhere program and may not contain all information available regarding this patient. Last updated 18.[facility] Allergies * Aspirin(GI Discomfort) * Morphine(Vomiting) Medications * Be aware that medications may not be up to date on this document. Alwaysverify current medications with the patient. * atorvastatin (LIPITOR) 20 MG tablet(Started 03/15/2018) 20 mg once daily * clonazePAM (KLONOPIN) 0.5 MG tablet(Started 03/24/2018) * fenofibrate (TRICOR) 48 MG tablet(Started 03/22/2018) * metFORMIN (GLUCOPHAGE) 1000 MG tablet(Started 03/22/2018) * pantoprazole EC (PROTONIX) 40 MG tablet(Started 03/22/2018) * lubiprostone (AMITIZA) 24 MCG capsule(Started 04/10/2018) Take 1 capsule by mouth 2 times daily with morning and evening meal 3 refills remaining * bisacodyl EC (DULCOLAX) 5 MG tablet(Started 04/12/2018) Take 2 tablets by mouth 2 times daily 2 refills remaining * Magnesium Oxide -Mg Supplement 250 MG(Started 04/12/2018) Take 4 tablets by mouth once daily 2 refills remaining Active Problems Problem Noted Date Diagnosed Date Chronic idiopathic constipation 08/28/2018 Generalized abdominal pain 08/28/2018 GI problem 04/10/2018 Social History Tobacco Use Types Packs/Day Years Used Date Smoking Tobacco: Never Smokeless Tobacco: Never Alcohol Use Standard Drinks/Week Comments Yes 0 (1 standard drink = 0.6 oz pur e alcohol) occassion Sex and Gender Information Value Date Recorded Sex Assigned at Not on file Gender Identity Not on file Sexual Orientation Not on file Last Filed Vital Signs Vital Sign Reading Time Taken Comments Blood Pressure 124/95 08/28/2018 2:25 PM CERTIFIED ORTHOTIST PRACTICE MANAGER Pulse 68 08/28/2018 2:25 PM CERTIFIED ORTHOTIST PRACTICE MANAGER Temperature 36.4 ??C (97.5 ??F) 08/28/2018 1:57 PM CS T Respiratory Rate 18 08/28/2018 2:25 PM CERTIFIED ORTHOTIST PRACTICE MANAGER Oxygen Saturation 96% 08/28/2018 2:25 PM CERTIFIED ORTHOTIST PRACTICE MANAGER Inhaled Oxygen Concentration - - Weight 87.5 kg (193 lb) 08/28/2018 11:52 AM CERTIFIED ORTHOTIST PRACTICE MANAGER Height 167.6 cm (5' 6 ) 08/28/2018 11:52 AM CERTIFIED ORTHOTIST PRACTICE MANAGER Body Mass Index 31.15 08/28/2018 11:52 AM CERTIFIED ORTHOTIST PRACTICE MANAGER Procedures * ENDOSCOPY, COLON, SCREENING(Performed 08/28/2018) * PATHOLOGY TISSUE(Performed 08/28/2018) Performed for Gastroesophageal reflux disease without esophagitis, Constipation, unspecified constipation type * COLONOSCOPY DIAGNOSTIC(Performed 08/28/2018) Performed for Gastroesophageal reflux disease without esophagitis, Constipation, unspecified constipation type * ESOPHAGOGASTRODUODENOSCOPY (EGD) DIAGNOSTIC(Performed 08/28/2018) Performed for Gastroesophageal reflux disease without esophagitis, Constipation, unspecified constipation type * EGD(Performed 08/28/2018) * GLUCOSE - POINT OF CARE(Performed 08/28/2018) Results * ENDOSCOPY, COLON, SCREENING (08/28/2018 1:18 PM CERTIFIED ORTHOTIST PRACTICE MANAGER) Report Endoscopy POC Endoscopy Department Report _ Patient Name: Mihaela Guadalupe ? Procedure Date: 08/28/2018 1:18 PM ?Date of : 1960 Classification: Outpatient ?Gender: Female _ Providers: ?Earnest Robbins MD Referring : ? Procedure: ?Colonoscopy Indications: ?Abdominal pain in the right lower quadrant, ?Constipation Medications: ?Monitored Anesthesia Care Description of Procedure: Pre-Anesthesia Assessment: ?- Prior to the procedure, a History and Physical ?was performed, and patient medications and ?allergies were reviewed. The patient's tolerance of ?previous anesthesia was also reviewed. The risks ?and benefits of the procedure and the sedation ?options and risks were discussed with the patient. ?All questions were answered, and informed consent ?was obtained. Prior Anticoagulants: The patient has ?taken no previous anticoagulant or antiplatelet ?agents. ASA Grade Assessment: II - A patient with ?mild systemic disease. After reviewing the risks ?and benefits, the patient was deemed in ?satisfactory condition to undergo the procedure. ?After I obtained informed consent, the scope was ?passed under direct vision. Throughout the ?procedure, the patient's blood pressure, pulse, and ?oxygen saturations were monitored continuously. The ?[id number] was introduced through the anus and ?advanced to the cecum, identified by appendiceal ?orifice and ileocecal valve. The colonoscopy was ?technically difficult and complex due to ?significant looping. Successful completion of the ?procedure was aided by changing the patient to a ?supine position. The patient tolerated the ?procedure well. The quality of the bowel ?preparation was fair. The ileocecal valve, ?appendiceal orifice, and rectum were photographed. ? Findings: ? The perianal and digital rectal examinations were normal. ? The colon (entire examined portion) appeared normal. ? Non-bleeding internal hemorrhoids were found during retroflexion. The ? hemorrhoids were medium-sized. ? Estimated Blood Loss: ? Estimated blood loss: none. Complications: ?No immediate complications. Impression: ? - Preparation of the colon was fair limiting ?sensitivty for polyps, there are no obstructing ?lesion to cause constipation or abdominal pain but ?the preparation was not sufficient to serve colon ?cancer screening colonoscopy. ?- The entire examined colon is normal. ?- Non-bleeding internal hemorrhoids. ?- No specimens collected. Recommendation: ? - Patient has a contact number available for ?emergencies. The signs and symptoms of potential ?delayed complications were discussed with the ?patient. Return to normal activities tomorrow. ?Written discharge instructions were provided to the ?patient. ?- Resume previous diet. ?- Continue present medications. ?- Consider repeating colonoscopy in 1 year for ?surveillance given preparation of the colon if ?patients constipation improves. ?- Return to GI clinic. ? Attending Participation: ??I personally performed the entire procedure. I was ?present and participated during the entire ?procedure from insertion to removal of the ?endoscope. ? Procedure Code(s): ? --- Professional --- ? 98802, Colonoscopy, flexible; diagnostic, including collection of ? specimen(s) by brushing or washing, when performed (separate procedure) Diagnosis Code(s): ?--- Professional --- ?K64.8, Other hemorrhoids ?R10.31, Right lower quadrant pain ?K59.00, Constipation, unspecified CPT copyright 2016 [employer]. All rights reserved. The codes documented in this report are preliminary and upon forensic psychologist review may be revised to meet current compliance requirements. _ Earnest Robbins MD 08/28/2018 2:00:27 PM This report has been signed electronically. Note Initiated On: 08/28/2018 1:18 PM Number of Addenda: 0 ? [facility] ? [address] [facility] [place] [place] [address] [place] [address] PROVATION 08/28/2018 1:18 PM CERTIFIED ORTHOTIST PRACTICE MANAGER Earnest Robbins MD GI PROCEDURE ORDERAB LES [facility] PROVATION * PATHOLOGY TISSUE (08/28/2018 1:11 PM CERTIFIED ORTHOTIST PRACTICE MANAGER) Case Report Surgical Pathology Report ? Case: [id number] ? Authorizing Provider: ??Earnest Robbins MD ?Collected: ? 08/28/2018 01:11 PM ? Ordering Location: ? [facility] ENDOSCOPY ?Received: ?08/28/2018 02:15 PM ? Pathologist: ? Lea Santiago MD ? Specimen: ?Gastric, ??gastric bx ? 08/30/2018 3:36 PM [facility] Final Diagnosis Stomach, biopsy (A): - Hyalinized lamina propria fibrosis and mild chronic inflammation - Negative for H. pylori 08/30/2018 3:36 PM [facility] Microscopic Description and Comment The biopsy shows several fragments of body type mucosa, a few with fairly dense hyalinized lamina propria and somewhat withered/atrophic glands. A trichrome stain shows this to be dense fibrosis. A Congo red stain is negative for amyloid. The appearance is reminiscent of chronic ischemic injury, though it is rather limited in its involvement. There is no hemorrhage or necrosis. In addition, there are areas of lymphocytes and scattered plasma cells, possibly a sign that the fibrosis is related to chronic inflammation. An H. pylori immunostain is negative for organisms. 08/30/2018 3:36 PM [facility] Clinical History The patient is a 57-year-old woman with generalized abdominal pain. Operative procedure/findings: EGD -- Diffuse mildly erythematous mucosa without bleeding was found in the stomach focally in the greater curve. 08/30/2018 3:36 PM [facility] Gross Description The requisition and specimen label(s) are identified with the patient name, Mihaela Guadalupe. Received in formalin, specimen A, gastric biopsy , are multiple, soft, zhou-white tissue fragments ranging from 0.2 to 0.3 cm in greatest dimension, with an aggregate measurement of 0.7 x 0.6 x 0.2 cm. The specimen is entirely submitted in cassette A1. ADH/biju 08/30/2018 3:36 PM [facility] Disclaimer The performance characteristics of all immunohistochemical and indirect immunofluorescence stains (if any) cited in this report were determined by the Histopathology Laboratory of [facility]. Some of these tests were developed by our own laboratory and have not been cleared or approved by the US Food and Drug Administration. The FDA does not require this test to go through premarket FDA review. These tests are used for clinical purposes. They should not be regarded as investigational or for research. This laboratory is certified under the Clinical Laboratory Improvement Amendments (CLIA) as qualified to perform high complexity clinical laboratory testing. This case has been personally reviewed and interpreted by the attending (teaching) pathologist. 08/30/2018 3:36 PM [facility] Embedded Images 08/30/2018 3:36 PM [facility] Biopsy, NOS GASTRIC CONTENTS SPECIMEN / Unknown 08/28/2018 1:11 PM CERTIFIED ORTHOTIST PRACTICE MANAGER 08/28/2018 2:15 PM CERTIFIED ORTHOTIST PRACTICE MANAGER Earnest Robbins MD LAB - PATHOLOGY/CYTO LOGY ORDERABLES Performing Organization Address City/State/[facility] Co de Phone Number [facility] [address] [facility] [phone] * EGD (08/28/2018 12:58 PM CERTIFIED ORTHOTIST PRACTICE MANAGER) Report Endoscopy POC Endoscopy Department Report __ _ Patient Name: Mihaela Guadalupe ? Procedure Date: 08/28/2018 12:58 PM ?Date of : 1960 Classification: Outpatient ?Gender: Female __ _ Providers: ?Earnest Robbins MD, Bryson Holt (Fellow) Referring : ? Procedure: ?Upper GI endoscopy Indications: ?Generalized abdominal pain Medications: ?Monitored Anesthesia Care Description of Procedure: Pre-Anesthesia Assessment: ?- Prior to the procedure, a History and Physical ?was performed, and patient medications and ?allergies were reviewed. The patient's tolerance of ?previous anesthesia was also reviewed. The risks ?and benefits of the procedure and the sedation ?options and risks were discussed with the patient. ?All questions were answered, and informed consent ?was obtained. Prior Anticoagulants: The patient has ?taken no previous anticoagulant or antiplatelet ?agents. ASA Grade Assessment: II - A patient with ?mild systemic disease. After reviewing the risks ?and benefits, the patient was deemed in ?satisfactory condition to undergo the procedure. ?After obtaining informed consent, the endoscope was ?passed under direct vision. Throughout the ?procedure, the patient's blood pressure, pulse, and ?oxygen saturations were monitored continuously. The ?[id number] was introduced through the mouth, and ?advanced to the second part of duodenum. The upper ?GI endoscopy was accomplished without difficulty. ?The patient tolerated the procedure well. ? Findings: ? Esophagogastric landmarks were identified: the Z-line was found at 35 ? cm, the gastroesophageal junction was found at 35 cm and the site of ? hiatal narrowing was found at 35 cm from the incisors. ? Diffuse mildly erythematous mucosa without bleeding was found in the ? stomach focally in the greater curve. Biopsies were taken with a cold ? forceps for histology. ? The examined duodenum was normal. ? Estimated Blood Loss: ? Estimated blood loss: none. Complications: ?No immediate complications. Impression: ? - Esophagogastric landmarks identified. ?- Erythematous mucosa in the stomach. Biopsied. ?- Normal examined duodenum. Recommendation: ? - Discharge patient to home (ambulatory). ?- Resume previous diet. ?- Continue present medications. ?- Await pathology results. ?- Patient has a contact number available for ?emergencies. The signs and symptoms of potential ?delayed complications were discussed with the ?patient. Return to normal activities tomorrow. ?Written discharge instructions were provided to the ?patient. ? Attending Participation: ??I was present and participated during the entire ?procedure from insertion to removal of the ?endoscope. ? Procedure Code(s): ? --- Professional --- ? 00950, Esophagogastroduode noscopy, flexible, transoral; with biopsy, ? single or multiple Diagnosis Code(s): ?--- Professional --- ?K31.89, Other diseases of stomach and duodenum ?R10.84, Generalized abdominal pain CPT copyright 2016 [employer]. All rights reserved. The codes documented in this report are preliminary and upon forensic psychologist review may be revised to meet current compliance requirements. Earnest Robbins MD 08/28/2018 1:54:08 PM This report has been signed electronically. Note Initiated On: 08/28/2018 12:58 PM Number of Addenda: 0 ? [facility] ? [address] 08/28/2018 12:5 8 PM CERTIFIED ORTHOTIST PRACTICE MANAGER Earnest Robbins MD GI PROCEDURE ORDERAB LES [facility] * GLUCOSE - POINT OF CARE (08/28/2018 11:52 AM CERTIFIED ORTHOTIST PRACTICE MANAGER) Glucose WB/POC 112 70 - 115 mg/dL 08/28/2018 11:54 AM CERTIFIED ORTHOTIST PRACTICE MANAGER [facility] Specimen Type Venous 08/28/2018 11:54 AM CERTIFIED ORTHOTIST PRACTICE MANAGER [facility] Blood BLOOD SPECIMEN / Unknown 08/28/2018 11:52 AM CERTIFIED ORTHOTIST PRACTICE MANAGER 08/28/2018 11:54 AM CERTIFIED ORTHOTIST PRACTICE MANAGER Narrative [facility] - 08/28/2018 11:54 AM CERTIFIED ORTHOTIST PRACTICE MANAGER Seo Consultant: YOUNG ??NUTRESSA Princess Rivers MD LAB - POINT OF CARE ORDERABLES Performing Organization Address City/[facility]/ZIP Co de Phone Number [facility] [address] [place] [address] Care Teams Assistance Representative Relationship Specialty Start Date End Date German Cornelius MD [address] [place] [id number] PCP - General 11/11/17
--- OUTSIDE RECORDS SUMMARY | 2024-11-21 13:07 | XMS_ITS | Clinical Summary ---
Author Organization [facility] Address [address] [place] [address] Care Team Providers Care J2Ee Software Engineer Name Role Phone German Cornelius MD Primary Care Provide r Allergies Active Allergy Reactions Criticality Noted Date Comments Adhesive Tape-Silicones Aspirin Morphine Medications pantoprazole DR (PROTONIX) 40 mg EC tablet Take 40 mg by mouth daily Active atorvastatin (LIPITOR) 40 mg tablet Take 40 mg by mouth daily Active fenofibrate nanocrystallized (TRICOR) 48 mg tablet Take 48 mg by mouth daily Active clonazePAM (KlonoPIN) 0.5 mg tablet Take 0.5 mg by mouth 2 (two) times a day Active pioglitazone (ACTOS) 30 mg tabletIndications:typ e 2 diabetes mellitus Take 30 mg by mouth daily Active Active Problems Problem Noted Date Diagnosed Date Abdominal pain 11/11/2011 Resolved Problems Problem Noted Date Diagnosed Date Resolved Date Hernia of anterior abdominal wall 06/13/2014 09/28/2021 Family History Medical History Relation Name Comments Diabetes Father Family history of diabetes mellitus - (Added by TW Conv) Heart attack Father Family history of myocardial infarction - (Added by TW Conv) Diabetes Son Family history of diabetes mellitus - (Added by TW Conv) Relation Name Status Comments Father Son Social History Tobacco Use Types Packs/Day Years Used Date Smoking Tobacco: Never Comments Unknown Sex and Gender Information Value Date Recorded Sex Assigned at Not on file Legal Sex Female 12:42 PM MANAGER CALL CENTER Gender Identity Not on file Sexual Orientation Not on file Obstetrics History Last Filed Vital Signs Vital Sign Reading Time Taken Comments Blood Pressure 147/90 09/25/2021 11:32 AM MANAGER CALL CENTER Pulse 76 09/25/2021 11:32 AM MANAGER CALL CENTER Temperature 36.8 ??C (98.2 ??F) 09/25/2021 1 1:32 AM MANAGER CALL CENTER Respiratory Rate - - Oxygen Saturation 94% 08/08/2014 11: 30 AM CDT Inhaled Oxygen Concentration - - Weight 96.1 kg (211 lb 12.8 oz) 021 11:32 AM MANAGER CALL CENTER Height 167.6 cm (5' 6 ) 09/25/2021 11:3 2 AM MANAGER CALL CENTER Body Mass Index 34.19 09/25/2021 11:32 AM MANAGER CALL CENTER Plan of Treatment [place] [address] [facility] Care Teams J2Ee Software Engineer Relationship Specialty Start Date End Date German Cornelius MD [address] [place] [address] PCP - General Family Medicine 08/31/21
--- OUTSIDE RECORDS SUMMARY | 2024-11-21 13:07 | XMS_ITS | Encounter Summary ---
Author Organization [facility] Address [address] [place] [address]. [place] [address] [place] [address] Care Team Providers Care Fitness Services Manager Name Role Phone German Cornelius MD Primary Care Provider [phone] Dorian Prieto DO Unavailable [phone] Encounter Details Date Type Department Care Team (Late st Contact Info) Description 06/24/2022 Hospital Orders Only [employer] Helper Pre/Post [address] [place], [place] [phone] Flaco Elena MD [address] [facility] [address] [place], [place] [id number] Social History Tobacco Use Types Packs/Day Years Used Date Smoking Tobacco: Former Cigarettes Q uit: 06/24/1980 Smokeless Tobacco: Never Alcohol Use Standard Drinks/Week Comments Not Currently 0 (1 standard drink = 0.6 oz pur e alcohol) Comments Unknown Sex and Gender Information Value Date Recorded Sex Assigned at Not on file Legal Sex Female 8:03 AM CDT Gender Identity Not on file Sexual Orientation Not on file COVID-19 Exposure Response Date Recorded In the last 10 days, have yo u been in contact with someone who was confirmed or suspected to have Coronavirus/COVID-19? No / Unsure 06/25/2022 12:14 PM CDT documented as of this encounter Plan of Treatment Not on file documented as of this encounter Visit Diagnoses Not on filedocumented in this encounter Care Teams Fitness Services Manager Relationship Specialty Start Date End Date German Cornelius MD [address] [place] [address] PCP - General FAMILY PRACTICE 06/24/20 Dorian Prieto DO [address] [place] [address] Consulting Physician CARDIOVASCULAR DISEASE 06/09/22 documented as of this encounter
--- OUTSIDE RECORDS SUMMARY | 2024-11-21 13:07 | XMS_ITS | Referral Summary ---
Author Organization [facility] Address [address] [place] [address] Care Team Providers Care Senior Business Objects Developer Name Role Phone German Cornelius MD Primary [...] Hernia of anterior abdominal wall 06/13/2014 09/28/2021 Social History Tobacco Use Types Packs/Day Years Used Date Smoking Tobacco: Never Comments Unknown Sex and Gender Information Value Date Recorded Sex Assigned at Not on file Legal Sex Female 12:42 PM CORRESPONDENCE COORDINATOR Gender Identity Not on file Sexual Orientation Not on file Last Filed Vital Signs Vital Sign Reading Time Taken Comments Blood Pressure 147/90 09/25/2021 11:32 AM CORRESPONDENCE COORDINATOR Pulse 76 09/25/2021 11:32 AM CORRESPONDENCE COORDINATOR Temperature 36.8 ??C (98.2 ??F) 09/25/2021 1 1:32 AM CORRESPONDENCE COORDINATOR Respiratory Rate - - Oxygen Saturation 94% 08/08/2014 11: 30 AM CDT Inhaled Oxygen Concentration - - Weight 96.1 kg (211 lb 12.8 oz) 11:32 AM CORRESPONDENCE COORDINATOR Height 167.6 cm (5' 6 ) 09/25/2021 11:3 2 AM CORRESPONDENCE COORDINATOR Body Mass Index 34.19 09/25/2021 11:32 AM CORRESPONDENCE COORDINATOR Plan of Treatment [place] [address] [facility] [place] [address] [facility] Member Subscriber Plan / Payer ( fective 2020-Present) Name:Mihaela Guadalupe Relation to Subscriber:Self Name:Mihaela Guadalupe Payer ID:[id number] (NAIC) Type:MEDICAID RISK OTHER Address: [place] [id number] Care Teams Senior Business Objects Developer Relationship Specialty Start Date End Date German Cornelius MD [address] [place], [place] [address] PCP - General Family Medicine 08/31/21
--- OUTSIDE RECORDS SUMMARY | 2024-11-21 13:07 | XMS_ITS | Clinical Summary ---
Author Organization [facility] Address [address] [place] [address]. [place] [address] [place] [address] Care Team Providers Care Technical Sales Representatives Name Role Phone German Cornelius MD Primary Care Provider [phone] Dorian Prieto DO Unavailable [phone] Allergies Active Allergy Reactions Criticality Noted Date Comments Aspirin GI Upset,Nausea and Vomiting 011 Morphine Nausea and Vomiting,Vomiting 011 Tape Rash Low 03/09/2011 Medications clonazePAM 0.5 MG tablet Take 1 mg by mouth nightly at bedtime. Active pioglitazone (ACTOS) 30 MG tablet Take 30 mg by mouth daily. Active fenofibrate (TRICOR) 48 MG tablet Take 48 mg by mouth daily. Active pantoprazole EC (PROTONIX) 40 MG tablet Take 40 mg by mouth daily. Active atorvastatin (LIPITOR) 40 MG tablet Take 40 mg by mouth daily. Active aspirin EC (ECOTRIN) 81 MG tablet Take 81 mg by mouth daily. Active metoprolol succinate ER (TOPROL-XL) 50 MG 24 hr tablet Take 1 tablet (50 mg total) by mouth daily. 90 tablet 2 Active hydrocortisone 2.5 % cream Apply 1 each topically daily as needed. 2 Active Active Problems Problem Noted Date Diagnosed Date Former smoker 06/18/2022 Assessment & Plan (06/18/2022 12:22 PM CDT): I did commend the patient and her successful attempts at smoking cessation. Chest pain Assessment & Plan (07/16/2022 1:19 PM CDT): With normal coronary angiography we will not be pursuing additional cardiovascular work-up. Patient has healed well from her recent angiogram, despite her hematoma she has had no paresthesias or weakness. I will plan to review her care on an as- needed basis. Assessment & Plan (06/18/2022 12:21 PM CDT): Patient's chest discomfort is very suspicious for coronary ischemia. With her significant atherosclerotic risk I plan to treat her as if this is angina and have added aspirin 81 mg daily and beta-jean paul until coronary angiography can be obtained. Patient's symptoms have only occurred with activity, due to her abnormal ECG I will obtain echocardiography to validate she has had no evidence for prior injury. At the patient's request she will obtain her coronary angiogram at [facility]. Shortness of breath Assessment & Plan (06/17/2022 2:46 PM CDT): Because of patient's dyspnea may be reasonable to assess her filling pressures with proBNP value and echocardiography. If these are suggested to be elevated it may be reasonable to look for an alternative to Actos for her T2DM treatment Mixed hyperlipidemia Family History Medical History Relation Comments No Known Problems Brother CHF Father Heart Attack Father Heart Disease Father No Known Problems Maternal Aunt Diabetes Maternal Grandfather Heart Maternal Grandfather No Known Problems Maternal Grandmother No Known Problems Maternal Uncle Cancer Mother No Known Problems Paternal Aunt Heart Disease Paternal Grandfather No Known Problems Paternal Grandmother No Known Problems Paternal Uncle metobolic syndrome Son Relation Status Comments Brother Alive Father Maternal Aunt Alive Maternal Grandfather Maternal Grandmother Maternal Uncle Alive Mother Alive Paternal Aunt Alive Paternal Grandfather Paternal Grandmother Paternal Uncle Alive Son Alive Social History Tobacco Use Types Packs/Day Years [...] Sign Reading Time Taken Comments Blood Pressure 112/66 07/16/2022 1:08 PM CDT Pulse 70 07/16/2022 1:08 PM CDT Temperature 36.8 ??C (98.2 ??F) 06/25/2022 1 2:03 PM CDT Respiratory Rate 14 06/25/2022 12:0 3 PM CDT Oxygen Saturation 98% 07/16/2022 1:08 PM CDT Inhaled Oxygen Concentration - - Weight 101.1 kg (222 lb 14.2 oz) 2021 11:35 AM CDT Height 165.1 cm (5' 5 ) 07/16/2022 1:08 PM CDT Body Mass Index 37.09 06/25/2022 11:35 AM CDT Plan of Treatment Health Maintenance Due Date Last Done Comments Colorectal Cancer Screening Colonoscopy (10 Years) 1961 Annual Physical 1964 Hepatitis C 1979 DTaP, Tdap and Td Vaccines ( 1 - Tdap) 1980 Mammogram Screening 2001 Zoster Vaccines (1 of 2) 2011 COVID-19 Vaccine ( - 2023-2 5 season) 2024 Influenza Adult (#1) 2024 RSV Immunization or 60+ Years (1 - 1-dose 75+ series) 2036 Meningococcal B Vaccine Aged Out No l onger eligible based on patient's age to complete this topic Meningococcal Vaccine Aged Out No darya trell eligible based on patient's age to complete this topic Pneumococcal Vaccine: Pediat rics (0 to 5 Years) and At-Risk Patients (6 to 64 Years) Aged Out No longer eligible b ased on patient's age to complete this topic RSV Immunizations Under 20 Months Aged Out No longer eligible based on patient's age to complete this topic Insurance [facility] MEDICAID Care Teams Technical Sales Representatives Relationship Specialty Start Date End Date German Cornelius MD [address] [place] [address] PCP - General FAMILY PRACTICE 06/24/20 Dorian Prieto DO [address] [place] [address] Consulting Physician CARDIOVASCULAR DISEASE 06/09/22
--- OUTSIDE RECORDS SUMMARY | 2024-11-21 13:07 | XMS_ITS | Clinical Summary ---
Author Organization [facility] [employer] Address [address] [place] [address] Care Team Providers Care Net Development Manager Name Role Phone German Cornelius MD Primary Care Provider [phone] Source Comments [facility] [employer],non-owned Affiliates and Associated Physician Practices is amultiple site organization consisting of ambulatory clinics and hospital sitesin [place], [place], [place] and [place]. This disclosure is being madepursuant to the Care Everywhere program and may not contain all information available regarding this patient. Last updated 18.[facility] Allergies Active Allergy Reactions Criticality Noted Date Comments Aspirin GI Discomfort 08/28/2018 Morphine Vomiting 08/28/2018 Medications * Be aware that medications may not be up to date on this document. Alwaysverify current medications with the patient. Medication Sig Dispensed Refills Start Date End Date Status atorvastatin (LIPITOR) 20 MG tablet 20 mg once daily 03/15/2018 Active clonazePAM (KLONOPIN) 0.5 MG tablet 03/24/2018 Active fenofibrate (TRICOR) 48 MG tablet 03/22/2018 Active metFORMIN (GLUCOPHAGE) 1000 MG tablet 03/22/2018 Active pantoprazole EC (PROTONIX) 40 MG tablet 03/22/2018 Active lubiprostone (AMITIZA) 24 MCG capsule Take 1 capsule by mouth 2 times daily with morning and evening meal 100 capsule 3 04/10/2018 Active Additional Information Patient not taking.Reported on 08/28/2018 bisacodyl EC (DULCOLAX) 5 MG tablet Take 2 tablets by mouth 2 times daily 4 tablet 2 04/12/2018 Active Additional Information Patient not taking.Reported on 08/28/2018 Magnesium Oxide -Mg Supplement 250 MG Take 4 tablets by mouth once daily 100 tablet 2 04/12/2018 Active Active Problems Problem Noted Date Diagnosed [...] Comments Blood Pressure 124/95 08/28/2018 2:25 PM DOLLYMAN Pulse 68 08/28/2018 2:25 PM DOLLYMAN Temperature 36.4 ??C (97.5 ??F) 08/28/2018 1:57 PM CS T Respiratory Rate 18 08/28/2018 2:25 PM DOLLYMAN Oxygen Saturation 96% 08/28/2018 2:25 PM DOLLYMAN Inhaled Oxygen Concentration - - Weight 87.5 kg (193 lb) 08/28/2018 11:52 AM DOLLYMAN Height 167.6 cm (5' 6 ) 08/28/2018 11:52 AM DOLLYMAN Body Mass Index 31.15 08/28/2018 11:52 AM DOLLYMAN Plan of Treatment Health Maintenance Due Date Last Done Comments COLOGUARD (AGES 45-75) - COL ON CA SCREENING 1961 CT COLONOGRAPHY - COLON CA SCREENING 1961 FIT - COLON CA SCREENING 1961 FLEX SIG - COLON CA SCREENING 1961 MAMMOGRAM 1961 PAP SMEAR 1961 HIV SCREENING 1976 HEPATITIS C SCREENING 10/17/1979 DTAP/TDAP/TD VACCINES (1 - Tdap) 1980 PNEUMOCOCCAL VACCINE 50+ (1 of 1 - PCV) 2011 ZOSTER VACCINE (1 of 2) 2011 SCREENING FOR DIABETES 08/28/2021 08/28/2018 COVID-19 VACCINE (1 - 2023-2 5 season) 2024 INFLUENZA VACCINE (#1) 2024 DEPRESSION SCREENING 10/24/2024 COLON MONITORING 08/28/2028 08/28/2018, 08/28/2018 COLONOSCOPY - COLON CA SCREENING 08/28/2028 08/28/2018, 08/28/2018 Colorectal Cancer Screening 08/28/2028 Respiratory Syncytial Virus (RSV) Vaccine Pt: or over 60 yrs (1 - 1-dose 75+ series) 2036 HEPATITIS B VACCINE Aged Out No longe r eligible based on patient's age to complete this topic HIB VACCINE Aged Out No longer eligi ble based on patient's age to complete this topic HPV VACCINE Aged Out No longer eligi ble based on patient's age to complete this topic MENINGOCOCCAL (Group B) VACCINE Aged Out No longer eligible b ased on patient's age to complete this topic MENINGOCOCCAL VACCINE Aged Out No darya trell eligible based on patient's age to complete this topic PNEUMOCOCCAL VACCINE Aged Out No long er eligible based on patient's age to complete this topic Procedures Procedure Name Priority Date/Time Associated Diagnosis Comments ENDOSCOPY, COLON, SCREENING Routine 08/28/2018 1:18 PM DOLLYMAN GLUCOSE - POINT OF CARE Routine 08/28/2018 11:52 AM DOLLYMAN from Last 3 Months or Most Recently Relevant to Health Maintenance Results * ENDOSCOPY, COLON, SCREENING (08/28/2018 1:18 PM DOLLYMAN) Report Endoscopy POC Endoscopy Department Report _ [...] and ?oxygen saturations were monitored continuously. The ?CF-[id number] was introduced through the anus and ?advanced [...] Procedure Code(s): ? --- Professional --- ? 64885, Colonoscopy, flexible; diagnostic, including collection of ? specimen(s) by brushing or washing, when performed (separate procedure) Diagnosis Code(s): ?--- Professional --- ?K64.8, Other hemorrhoids ?R10.31, Right lower quadrant pain ?K59.00, Constipation, unspecified CPT copyright 2016 [employer]. All rights reserved. The codes documented in this report are preliminary and upon hcc coders review may be revised to meet current compliance requirements. _ Earnest Robbins MD 08/28/2018 2:00:27 PM This report has been signed electronically. Note Initiated On: 08/28/2018 1:18 PM Number of Addenda: 0 ? [facility] ? [address] 08/28/2018 1:18 PM DOLLYMAN Earnest Robbins MD GI PROCEDURE ORDERAB LES [facility] * GLUCOSE - POINT OF CARE (08/28/2018 11:52 AM DOLLYMAN) [facility] Glucose WB/POC 112 70 - 115 mg/dL 08/28/2018 11:54 AM DOLLYMAN [facility] Specimen Type Venous 08/28/2018 11:54 AM DOLLYMAN [facility] Blood BLOOD SPECIMEN / Unknown 08/28/2018 11:52 AM DOLLYMAN 08/28/2018 11:54 AM DOLLYMAN Narrative [facility] - 08/28/2018 11:54 AM DOLLYMAN Programming Manager: YOUNG ??NUTRESSA Princess Rivers MD LAB - POINT OF CARE ORDERABLES Performing Organization Address City/[facility]/ZIP Co de Phone Number [facility] [address] [phone] from Last 3 Months or Most Recently Relevant to Health Maintenance Care Teams Net Development Manager Relationship Specialty Start Date End Date German Cornelius MD [address] [place] [address] PCP - General 11/11/17
--- OUTSIDE RECORDS SUMMARY | 2024-11-21 13:07 | XMS_ITS | Referral Summary ---
Author Organization [facility] Address [address] [place] [address] Care Team Providers Care Filament Coil Winder Name Role Phone German Cornelius MD Primary Care Provider [phone] Source Comments [facility],non-owned Affiliates and Associated Physician Practices is amultiple site organization consisting of ambulatory clinics and hospital sitesin [place], [place], [place] and [place]. This disclosure is being madepursuant to the Care Everywhere program and may not contain all information available regarding this patient. Last updated 18.[facility] Allergies Active Allergy Reactions Criticality Noted Date [...] Comments Blood Pressure 124/95 08/28/2018 2:25 PM MACHINE LOAD CLERK Pulse 68 08/28/2018 2:25 PM MACHINE LOAD CLERK Temperature 36.4 ??C (97.5 ??F) 08/28/2018 1:57 PM CS T Respiratory Rate 18 08/28/2018 2:25 PM MACHINE LOAD CLERK Oxygen Saturation 96% 08/28/2018 2:25 PM MACHINE LOAD CLERK Inhaled Oxygen Concentration - - Weight 87.5 kg (193 lb) 08/28/2018 11:52 AM MACHINE LOAD CLERK Height 167.6 cm (5' 6 ) 08/28/2018 11:52 AM MACHINE LOAD CLERK Body Mass Index 31.15 08/28/2018 11:52 AM MACHINE LOAD CLERK Plan of Treatment Not on file Procedures Procedure Name Priority Date/Time Associated Diagnosis Comments ENDOSCOPY, COLON, SCREENING Routine 08/28/2018 1:18 PM MACHINE LOAD CLERK GLUCOSE - POINT OF CARE Routine 08/28/2018 11:52 AM MACHINE LOAD CLERK from Last 3 Months or Most Recently Relevant to Health Maintenance Results * ENDOSCOPY, COLON, SCREENING (08/28/2018 1:18 PM MACHINE LOAD CLERK) Report Endoscopy POC Endoscopy Department Report _ Patient Name: Mihaela Guadalupe ? Procedure Date: 08/28/2018 1:18 PM ?Date of : 1960 Classification: Outpatient ?Gender: Female _ Providers: ?Earnest Robbins MD Referring MD: ? Procedure: ?Colonoscopy Indications: ?Abdominal pain in [...] and ?oxygen saturations were monitored continuously. The ?CF-[id number] was introduced through the anus and ?advanced [...] Procedure Code(s): ? --- Professional --- ? 14826, Colonoscopy, flexible; diagnostic, including collection of ? specimen(s) by brushing or washing, when performed (separate procedure) Diagnosis Code(s): ?--- Professional --- ?K64.8, Other hemorrhoids ?R10.31, Right lower quadrant pain ?K59.00, Constipation, unspecified CPT copyright 2016 [employer]. All rights reserved. The codes documented in this report are preliminary and upon grinder machine setter review may be revised to meet current compliance requirements. _ Earnest Robbins MD 08/28/2018 2:00:27 PM This report has been signed electronically. Note Initiated On: 08/28/2018 1:18 PM Number of Addenda: 0 ? [facility] ? [address] [place] [address] 08/28/2018 1:18 PM MACHINE LOAD CLERK Earnest Robbins MD GI PROCEDURE ORDERAB LES Performing Organization Address City/[facility] de Phone Number [facility] * GLUCOSE - POINT OF CARE (08/28/2018 11:52 AM MACHINE LOAD CLERK) Glucose WB/POC 112 70 - 115 mg/dL 08/28/2018 11:54 AM MACHINE LOAD CLERK [facility] Specimen Type Venous 08/28/2018 11:54 AM MACHINE LOAD CLERK [facility] Blood BLOOD SPECIMEN / Unknown 08/28/2018 11:52 AM MACHINE LOAD CLERK 08/28/2018 11:54 AM MACHINE LOAD CLERK Narrative [facility] - 08/28/2018 11:54 AM MACHINE LOAD CLERK Kiln Stoker: YOUNG ??NUTRESSA Princess Rivers MD LAB - POINT OF CARE ORDERABLES Performing Organization Address City/[facility] [place] [address], [facility] [phone] from Last 3 Months or Most Recently Relevant to Health Maintenance Care Teams Filament Coil Winder Relationship Specialty Start Date End Date German Cornelius MD [address] [place] [address] PCP - General 11/11/17
[2024-11-21 13:16] LABS: SARS-CoV-2 RNA PCR Negative (Negative)
[2024-11-21 13:17] LABS: Influenza A QL RT-PCR Positive (Negative); Influenza B QL RT-PCR Negative (Negative); RSV RNA, RT-PCR Negative (Negative)
--- NOTE | 2024-11-21 13:29 | PC.NURSE ---
PT IS RESTING ON STRETCHER WITH AT BEDSIDE. PT IS AWAITING RESULTS AT THIS TIME. NAD NOTED. PT DENIES NEEDS OR COMPLAINTS. NO EMESIS NOTED THUS FAR IN ED VISIT. WILL CONTINUE TO MONITOR.
--- OUTSIDE RECORDS SUMMARY | 2024-11-21 13:48 | XMS_ITS | Encounter Summary ---
Author Organization [facility] Address [address] [place] [address]. [place] [address] [place] [address] Care Team Providers Care Weapons Officer Naval Activity Name Role Phone German Cornelius MD Primary Care Provider [phone] Dorian Prieto DO Unavailable [phone] Encounter Details Date Type Department Care Team (Late st Contact Info) Description 06/24/2022 Hospital Orders Only Svensen's Profiling Machine Set Up Operator Tool Pre/Post [address] [place], [place] [id number] Flaco Elena MD [address] [facility] [address] [place], [place] [id number] Social History Tobacco Use Types Packs/Day Years [...] on filedocumented in this encounter Care Teams Weapons Officer [employer] Relationship Specialty Start Date End Date German Cornelius MD [address] [place] [address] PCP - General FAMILY PRACTICE 06/24/20 Dorian Prieto DO [address] [place] [address] Consulting Physician CARDIOVASCULAR DISEASE 06/09/22 documented as of this encounter
--- OUTSIDE RECORDS SUMMARY | 2024-11-21 13:48 | XMS_ITS | Patient Health Summary ---
Author Organization [facility] Address [address] [place] [address] Care Team Providers Care Lab Aid Name Role Phone German Cornelius MD Primary Care Provider [phone] Note from [facility],non-owned Affiliates and Associated Physician Practices is amultiple site organization consisting of ambulatory clinics and hospital sitesin [place], [place], [place] and [place]. This disclosure is being madepursuant to the Care Everywhere program and may not contain all information available regarding this patient. Last updated 18.[facility] Allergies * Aspirin(GI Discomfort) * Morphine(Vomiting) [...] Comments Blood Pressure 124/95 08/28/2018 2:25 PM HARVEST SUPERVISOR Pulse 68 08/28/2018 2:25 PM HARVEST SUPERVISOR Temperature 36.4 ??C (97.5 ??F) 08/28/2018 1:57 PM CS T Respiratory Rate 18 08/28/2018 2:25 PM HARVEST SUPERVISOR Oxygen Saturation 96% 08/28/2018 2:25 PM HARVEST SUPERVISOR Inhaled Oxygen Concentration - - Weight 87.5 kg (193 lb) 08/28/2018 11:52 AM HARVEST SUPERVISOR Height 167.6 cm (5' 6 ) 08/28/2018 11:52 AM HARVEST SUPERVISOR Body Mass Index 31.15 08/28/2018 11:52 AM HARVEST SUPERVISOR Procedures * ENDOSCOPY, COLON, SCREENING(Performed 08/28/2018) * [...] * ENDOSCOPY, COLON, SCREENING (08/28/2018 1:18 PM HARVEST SUPERVISOR) Report Endoscopy POC Endoscopy Department Report _ [...] and ?oxygen saturations were monitored continuously. The ?CF-[id number] was introduced through the anus and ?advanced [...] Procedure Code(s): ? --- Professional --- ? 26524, Colonoscopy, flexible; diagnostic, including collection of ? specimen(s) by brushing or washing, when performed (separate procedure) Diagnosis Code(s): ?--- Professional --- ?K64.8, Other hemorrhoids ?R10.31, Right lower quadrant pain ?K59.00, Constipation, unspecified CPT copyright 2016 [employer]. All rights reserved. The codes documented in this report are preliminary and upon public address servicer review may be revised to meet current compliance requirements. _ Earnest Robbins MD 08/28/2018 2:00:27 PM This report has been signed electronically. Note Initiated On: 08/28/2018 1:18 PM Number of Addenda: 0 ? [facility] ? [address] [facility] [place] [facility] [place], [place] [address] [place] [address] [employer] 08/28/2018 1:18 PM HARVEST SUPERVISOR Earnest Robbins MD GI PROCEDURE ORDERAB LES [facility] [employer]ATION * PATHOLOGY TISSUE (08/28/2018 1:11 PM HARVEST SUPERVISOR) Case Report Surgical Pathology Report ? Case: [id number] ? Authorizing Provider: ??Earnest Robbins MD ?Collected: ? 08/28/2018 01:11 PM ? Ordering Location: ? [facility] ENDOSCOPY ?Received: ?08/28/2018 02:15 PM ? Pathologist: ? Lea Santiago MD ? Specimen: ?Gastric, ??gastric bx ? 08/30/2018 3:[address] [facility] Final Diagnosis Stomach, biopsy (A): - Hyalinized lamina propria fibrosis and mild chronic inflammation - Negative for H. pylori 08/30/2018 3:[address] [facility] Microscopic Description and Comment The [...] is negative for organisms. 08/30/2018 3:[address] [facility] Clinical History The patient is a 57-year-old woman with generalized abdominal pain. Operative procedure/findings: EGD -- Diffuse mildly erythematous mucosa without bleeding was found in the stomach focally in the greater curve. 08/30/2018 3:[address] [facility] Gross Description The requisition and specimen label(s) are identified with the patient name, Mihaela Guadalupe. Received in formalin, specimen A, gastric biopsy , are multiple, soft, zhou-white tissue fragments ranging from 0.2 to 0.3 cm in greatest dimension, with an aggregate measurement of 0.7 x 0.6 x 0.2 cm. The specimen is entirely submitted in cassette A1. ADH/biju 08/30/2018 3:[address] [facility] Disclaimer The performance characteristics of [...] the attending (teaching) pathologist. 08/30/2018 3:[address] [facility] Embedded Images 08/30/2018 3:[address] [facility] Biopsy, NOS GASTRIC CONTENTS SPECIMEN / Unknown 08/28/2018 1:11 PM HARVEST SUPERVISOR 08/28/2018 2:15 PM HARVEST SUPERVISOR Earnest Robbins MD LAB - PATHOLOGY/CYTO LOGY ORDERABLES Performing Organization Address City/State/[facility] Co de Phone Number [facility] [address] [facility] [phone] * EGD (08/28/2018 12:58 PM HARVEST SUPERVISOR) Report Endoscopy POC Endoscopy Department Report __ [...] Procedure Code(s): ? --- Professional --- ? 31384, Esophagogastroduode noscopy, flexible, transoral; with biopsy, ? single or multiple Diagnosis Code(s): ?--- Professional --- ?K31.89, Other diseases of stomach and duodenum ?R10.84, Generalized abdominal pain CPT copyright 2016 [employer]. All rights reserved. The codes documented in this report are preliminary and upon public address servicer review may be revised to meet current compliance requirements. Earnest Robbins MD 08/28/2018 1:54:08 PM This report has been signed electronically. Note Initiated On: 08/28/2018 12:58 PM Number of Addenda: 0 ? [facility] ? [address] 08/28/2018 12:5 8 PM HARVEST SUPERVISOR Earnest Robbins MD GI PROCEDURE ORDERAB LES [facility] * GLUCOSE - POINT OF CARE (08/28/2018 11:52 AM HARVEST SUPERVISOR) Glucose WB/POC 112 70 - 115 mg/dL 08/28/2018 11:54 AM HARVEST SUPERVISOR [facility] Specimen Type Venous 08/28/2018 11:54 AM HARVEST SUPERVISOR [facility] Blood BLOOD SPECIMEN / Unknown 08/28/2018 11:52 AM HARVEST SUPERVISOR 08/28/2018 11:54 AM HARVEST SUPERVISOR Narrative [facility] - 08/28/2018 11:54 AM HARVEST SUPERVISOR Art Dealer: YOUNG ??NUTRESSA Princess Rivers MD LAB - POINT OF CARE ORDERABLES Performing Organization Address City/[facility]/ZIP Co de Phone Number [facility] [address] [place] [address] Care Teams Lab Aid Relationship Specialty Start Date End Date German Cornelius MD [address] [place] [address] PCP - General 11/11/17
--- OUTSIDE RECORDS SUMMARY | 2024-11-21 13:48 | XMS_ITS | Clinical Summary ---
Author Organization [facility] Address [address] [place] [address]. [place] [address] [place] [address] Care Team Providers Care Tongue And Groove Machine Setter Name Role Phone German Cornelius MD Primary Care Provider [phone] Dorian Prieto DO Unavailable [phone] Allergies Active Allergy Reactions Criticality Noted Date [...] she will obtain her coronary angiogram at [facility]. Shortness of breath Assessment & Plan (06/17/2022 [...] patient's age to complete this topic Insurance [facility] MEDICAID Care Teams Tongue And Groove Machine Setter Relationship Specialty Start Date End Date German Cornelius MD [address] [place] [address] PCP - General FAMILY PRACTICE 06/24/20 Dorian Prieto DO [address] [place] [address] Consulting Physician CARDIOVASCULAR DISEASE 06/09/22
--- OUTSIDE RECORDS SUMMARY | 2024-11-21 13:48 | XMS_ITS | Clinical Summary ---
Author Organization [facility] Address [address] [place] [address] Care Team Providers Care Floor Refinisher Name Role Phone German Cornelius MD Primary [...] on file Legal Sex Female 12:42 PM CITY ASSESSOR Gender Identity Not on file Sexual Orientation Not on file Obstetrics History Last Filed Vital Signs Vital Sign Reading Time Taken Comments Blood Pressure 147/90 09/25/2021 11:32 AM CITY ASSESSOR Pulse 76 09/25/2021 11:32 AM CITY ASSESSOR Temperature 36.8 ??C (98.2 ??F) 09/25/2021 1 1:32 AM CITY ASSESSOR Respiratory Rate - - Oxygen Saturation 94% 08/08/2014 11: 30 AM CDT Inhaled Oxygen Concentration - - Weight 96.1 kg (211 lb 12.8 oz) 021 11:32 AM CITY ASSESSOR Height 167.6 cm (5' 6 ) 09/25/2021 11:3 2 AM CITY ASSESSOR Body Mass Index 34.19 09/25/2021 11:32 AM CITY ASSESSOR Plan of Treatment [place] [address] [facility] Care Teams Floor Refinisher Relationship Specialty Start Date End Date German Cornelius MD [address] [place] [address] PCP - General Family Medicine 08/31/21
--- OUTSIDE RECORDS SUMMARY | 2024-11-21 13:48 | XMS_ITS | Referral Summary ---
Author Organization [facility] Address [address] [place] [address] Care Team Providers Care Development Director Name Role Phone German Cornelius MD Primary Care Provider [phone] Source Comments [facility],non-owned Affiliates and Associated Physician Practices is amultiple site organization consisting of ambulatory clinics and hospital sitesin [place] and [place]. This disclosure is being madepursuant to the Care Everywhere program and may not contain all information available regarding this patient. Last updated 18.[facility] Allergies Active Allergy Reactions Criticality Noted Date [...] Comments Blood Pressure 124/95 08/28/2018 2:25 PM SUPPLIER SPECIALIST Pulse 68 08/28/2018 2:25 PM SUPPLIER SPECIALIST Temperature 36.4 ??C (97.5 ??F) 08/28/2018 1:57 PM CS T Respiratory Rate 18 08/28/2018 2:25 PM SUPPLIER SPECIALIST Oxygen Saturation 96% 08/28/2018 2:25 PM SUPPLIER SPECIALIST Inhaled Oxygen Concentration - - Weight 87.5 kg (193 lb) 08/28/2018 11:52 AM SUPPLIER SPECIALIST Height 167.6 cm (5' 6 ) 08/28/2018 11:52 AM SUPPLIER SPECIALIST Body Mass Index 31.15 08/28/2018 11:52 AM SUPPLIER SPECIALIST Plan of Treatment Not on file Procedures Procedure Name Priority Date/Time Associated Diagnosis Comments ENDOSCOPY, COLON, SCREENING Routine 08/28/2018 1:18 PM SUPPLIER SPECIALIST GLUCOSE - POINT OF CARE Routine 08/28/2018 11:52 AM SUPPLIER SPECIALIST from Last 3 Months or Most Recently Relevant to Health Maintenance Results * ENDOSCOPY, COLON, SCREENING (08/28/2018 1:18 PM SUPPLIER SPECIALIST) Report Endoscopy POC Endoscopy Department Report _ [...] and ?oxygen saturations were monitored continuously. The ?[id number] was introduced through the anus and ?advanced [...] Procedure Code(s): ? --- Professional --- ? 92934, Colonoscopy, flexible; diagnostic, including collection of ? specimen(s) by brushing or washing, when performed (separate procedure) Diagnosis Code(s): ?--- Professional --- ?K64.8, Other hemorrhoids ?R10.31, Right lower quadrant pain ?K59.00, Constipation, unspecified CPT copyright 2016 [employer]. All rights reserved. The codes documented in this report are preliminary and upon warp spinner review may be revised to meet current compliance requirements. _ Earnest Robbins MD 08/28/2018 2:00:27 PM This report has been signed electronically. Note Initiated On: 08/28/2018 1:18 PM Number of Addenda: 0 ? [facility] ? [address] [place] [address] 08/28/2018 1:18 PM SUPPLIER SPECIALIST Earnest Robbins MD GI PROCEDURE ORDERAB LES Performing Organization Address City/[facility] de Phone Number [facility] * GLUCOSE - POINT OF CARE (08/28/2018 11:52 AM SUPPLIER SPECIALIST) Glucose WB/POC 112 70 - 115 mg/dL 08/28/2018 11:54 AM SUPPLIER SPECIALIST [facility] Specimen Type Venous 08/28/2018 11:54 AM SUPPLIER SPECIALIST [facility] Blood BLOOD SPECIMEN / Unknown 08/28/2018 11:52 AM SUPPLIER SPECIALIST 08/28/2018 11:54 AM SUPPLIER SPECIALIST Narrative [facility] - 08/28/2018 11:54 AM SUPPLIER SPECIALIST Geriatric Nurse Assistant: YOUNG ??NUTRESSA Princess Rivers MD LAB - POINT OF CARE ORDERABLES Performing Organization Address City/[facility] [place] [address], [facility] [phone] from Last 3 Months or Most Recently Relevant to Health Maintenance Care Teams Development Director Relationship Specialty Start Date End Date German Cornelius MD [address] [place] [address] PCP - General 11/11/17
--- OUTSIDE RECORDS SUMMARY | 2024-11-21 13:48 | XMS_ITS | Referral Summary ---
Author Organization [facility] Address [address] [place] [address] Care Team Providers Care Investment Counselor Name Role Phone German Cornelius MD Primary [...] on file Legal Sex Female 12:42 PM FORKLIFT MECHANIC Gender Identity Not on file Sexual Orientation Not on file Last Filed Vital Signs Vital Sign Reading Time Taken Comments Blood Pressure 147/90 09/25/2021 11:32 AM FORKLIFT MECHANIC Pulse 76 09/25/2021 11:32 AM FORKLIFT MECHANIC Temperature 36.8 ??C (98.2 ??F) 09/25/2021 1 1:32 AM FORKLIFT MECHANIC Respiratory Rate - - Oxygen Saturation 94% 08/08/2014 11: 30 AM CDT Inhaled Oxygen Concentration - - Weight 96.1 kg (211 lb 12.8 oz) 11:32 AM FORKLIFT MECHANIC Height 167.6 cm (5' 6 ) 09/25/2021 11:3 2 AM FORKLIFT MECHANIC Body Mass Index 34.19 09/25/2021 11:32 AM FORKLIFT MECHANIC Plan of Treatment [place] [address] [facility] [address] [facility] Member Subscriber Plan / Payer ( fective 2020-Present) Name:Mihaela Guadalupe Relation to Subscriber:Self Name:Mihaela Guadalupe Payer ID:[id number] (NAIC) Type:MEDICAID RISK OTHER Address: [place] [id number] Care Teams Investment Counselor Relationship Specialty Start Date End Date German Cornelius MD [address] [place], [place] [id number] PCP - General Family Medicine 08/31/21
--- OUTSIDE RECORDS SUMMARY | 2024-11-21 13:48 | XMS_ITS | Clinical Summary ---
Author Organization [facility] Address [address] [place] [address] Care Team Providers Care Signal Technician Name Role Phone German Cornelius MD Primary Care Provider [phone] Source Comments [facility],non-owned Affiliates and Associated Physician Practices is amultiple site organization consisting of ambulatory clinics and hospital sitesin [place], [place], [place] and [place]. This disclosure is being madepursuant to the Care Everywhere program and may not contain all information available regarding this patient. Last updated 18.[facility] Allergies Active Allergy Reactions Criticality Noted Date [...] Comments Blood Pressure 124/95 08/28/2018 2:25 PM MANAGER NEWS Pulse 68 08/28/2018 2:25 PM MANAGER NEWS Temperature 36.4 ??C (97.5 ??F) 08/28/2018 1:57 PM CS T Respiratory Rate 18 08/28/2018 2:25 PM MANAGER NEWS Oxygen Saturation 96% 08/28/2018 2:25 PM MANAGER NEWS Inhaled Oxygen Concentration - - Weight 87.5 kg (193 lb) 08/28/2018 11:52 AM MANAGER NEWS Height 167.6 cm (5' 6 ) 08/28/2018 11:52 AM MANAGER NEWS Body Mass Index 31.15 08/28/2018 11:52 AM MANAGER NEWS Plan of Treatment Health Maintenance Due Date [...] ENDOSCOPY, COLON, SCREENING Routine 08/28/2018 1:18 PM MANAGER NEWS GLUCOSE - POINT OF CARE Routine 08/28/2018 11:52 AM MANAGER NEWS from Last 3 Months or Most Recently Relevant to Health Maintenance Results * ENDOSCOPY, COLON, SCREENING (08/28/2018 1:18 PM MANAGER NEWS) Report Endoscopy POC Endoscopy Department Report _ [...] and ?oxygen saturations were monitored continuously. The ?[id number] was introduced through the anus and ?advanced [...] Procedure Code(s): ? --- Professional --- ? 93663, Colonoscopy, flexible; diagnostic, including collection of ? specimen(s) by brushing or washing, when performed (separate procedure) Diagnosis Code(s): ?--- Professional --- ?K64.8, Other hemorrhoids ?R10.31, Right lower quadrant pain ?K59.00, Constipation, unspecified CPT copyright 2016 [employer]. All rights reserved. The codes documented in this report are preliminary and upon camera engineer review may be revised to meet current compliance requirements. _ Earnest Robbins MD 08/28/2018 2:00:27 PM This report has been signed electronically. Note Initiated On: 08/28/2018 1:18 PM Number of Addenda: 0 ? [facility] ? [address] 08/28/2018 1:18 PM MANAGER NEWS Earnest Robbins MD GI PROCEDURE ORDERAB LES [facility] * GLUCOSE - POINT OF CARE (08/28/2018 11:52 AM MANAGER NEWS) [facility] Glucose WB/POC 112 70 - 115 mg/dL 08/28/2018 11:54 AM MANAGER NEWS [facility] Specimen Type Venous 08/28/2018 11:54 AM MANAGER NEWS [facility] Blood BLOOD SPECIMEN / Unknown 08/28/2018 11:52 AM MANAGER NEWS 08/28/2018 11:54 AM MANAGER NEWS Narrative [facility] - 08/28/2018 11:54 AM MANAGER NEWS Applied Psychology Chair: YOUNG ??NUTRESSA Princess Rivers MD LAB - POINT OF CARE ORDERABLES Performing Organization Address City/[facility]/ZIP Co de Phone Number [facility] [address] [phone] from Last 3 Months or Most Recently Relevant to Health Maintenance Care Teams Signal Technician Relationship Specialty Start Date End Date German Cornelius MD [address] [place] [address] PCP - General 11/11/17
[2024-11-21 13:50] VITALS: BP 102/59; PULSE 92; RESP 20; TEMP 37; O2SAT 93
== END 2024-11-21 13:50 | disposition home or self-care (01) ==
PROVIDERS: Emergency Provider Internal Medicine Critical Care Medicine; PCP Family Medicine
DX: J10.1 Influenza due to other identified influenza virus with other respiratory manifestations (principal); J18.9 Pneumonia, unspecified organism; E11.9 Type 2 diabetes mellitus without complications; E78.5 Hyperlipidemia, unspecified; K21.9 Gastro-esophageal reflux disease without esophagitis; G25.81 Restless legs syndrome; Z20.822 Contact with and (suspected) exposure to COVID-19
CPT/HCPCS: 36415; 71045; 80053; 81001; 83605; 83690; 85025; 87637; 99283; A9270

== ENCOUNTER 2025-04-02 01:32 | Day surgery (SDC) | payer MEDICARE, MEDICAID, SELFPAY ==
[2025-02-01 14:39] VITALS: BMI 36.1
--- OUTSIDE RECORDS SUMMARY | 2025-04-02 01:36 | XMS_ITS | Clinical Summary ---
Author Organization [facility] Address [address] [place] [address] Care Team Providers Care Nail Technician Name Role Phone German Cornelius MD Primary Care Provide r Allergies Active Allergy Reactions Criticality Noted Date Comments Adhesive Tape-Silicones Aspirin Morphine Medications pantoprazole DR (PROTONIX) 40 mg EC tablet Take 1 tablet (40 mg total) by mouth daily Active atorvastatin (LIPITOR) 40 mg tablet Take 1 tablet (40 mg total) by mouth daily Active fenofibrate nanocrystallized (TRICOR) 48 mg tablet Take 1 tablet (48 mg total) by mouth daily Active clonazePAM (KlonoPIN) 0.5 mg tablet Take 1 tablet (0.5 mg total) by mouth 2 (two) times a day Active pioglitazone (ACTOS) 30 mg tabletIndications:ty pe 2 diabetes mellitus Take 1 tablet (30 mg total) by mouth daily Active gabapentin (NEURONTIN) 300 mg capsule Take 1 capsule (300 mg total) by mouth 3 (three) times a day Active Ozempic 0.25 mg or 0.5 mg (2 mg/3 mL) pen injector injection Inject 0.25 mg under the skin Active Active Problems Problem Noted Date Diagnosed Date Obesity (BMI 30.0-34.9) 03/01/2025 Type 2 diabetes mellitus 03/01/2025 Asthma 03/01/2025 Abdominal pain 11/11/2011 Resolved Problems Problem Noted Date Diagnosed Date Resolved Date Hernia of anterior abdominal wall 06/13/2014 09/28/2021 Encounters Date Type Department Care Team Description 03/05/2025 2:30 PM CDT Ancillary Procedure [facility] [address] [place] [address] Encounter for screening mammogram for breast cancer 03/01/2025 1:30 PM CDT Office Visit [facility] [address] [place] [address] Yulissa Areraga MD Cystocele, midline (Primary Dx); Postmenopausal atrophic vaginitis; Encounter for screening mammogram for breast cancer from Last 3 Months Surgical History Surgery Date Site/Laterality Comments SECTION x4 TOTAL ABDOMINAL HYSTERECTOMY 10/24/2009 - 10/23/2010 menorrhagia ABDOMINAL HERNIA REPAIR 10/24/2009 - 10/23/2010 x5 over 5 years HERNIA MESH REMOVAL 10/24/2011 - 10/23/2012 Medical History Medical History Date Comments RLS (restless legs syndrome) Diabetes type 2 (HCC) Asthma Family History Medical History Relation Name Comments Diabetes Father Family history of diabetes mellitus - (Added by TW Conv) Heart attack Father Family history of myocardial infarction - (Added by TW Conv) Breast cancer Mother onset 60s Diabetes Son Family history of diabetes mellitus - (Added by TW Conv) Relation Name Status Comments Father Mother Son Social History Tobacco Use Types Packs/Day Years Used Date Smoking Tobacco: Never Comments No Sex and Gender Information Value Date Recorded Sex Assigned at Not on file Legal Sex Female 12:42 PM VENEREAL DISEASE INVESTIGATOR Gender Identity Not on file Sexual Orientation Not on file Obstetrics History Para Term AB IAB SAB Ectopic Multiple Livin g Live Births 4 4 4 4 4 Date Outcome GA Total Labor Labor/2nd/3rd Weight Sex Type Anes PTL Tiny A1 A5 Name Clin 1978 Term 4.99 kg (11 lb) C-Sec tion Living 1981 Term 3.912 kg (8 lb 10 oz) M C-Sec tion Living 1983 Term 3.926 kg (8 lb 10.5 oz) M C-Sec tion Living 1986 Term 4.21 kg (9 lb 4.5 oz) M C-Sec tion Living Last Filed Vital Signs Vital Sign Reading Time Taken Comments Blood Pressure 132/80 03/01/2025 1:18 PM CDT Pulse 76 09/25/2021 11:32 AM VENEREAL DISEASE INVESTIGATOR Temperature 36.8 C (98.2 F) 09/25/2021 11:32 AM VENEREAL DISEASE INVESTIGATOR Respiratory Rate - - Oxygen Saturation 94% 08/08/2014 11: 30 AM CDT Inhaled Oxygen Concentration - - Weight 101.2 kg (223 lb 1.7 oz) 03/05/2025 2:41 PM CDT Height 166.4 cm (5' 5.51) 03/05/2025 2:41 PM CD T Body Mass Index 36.55 03/05/2025 2:41 PM CDT Plan of Treatment Health Maintenance Due Date Last Done Comments Albumin Creatinine Ratio, Urine 1961 Colon Cancer Screening-Colonoscopy 1961 Depression Screening 1961 Hemoglobin A1C 1961 Hepatitis C Screening 1961 eGFR 1961 Dilated Eye Exam 1961 Foot Exam 1961 Lipid Panel 1961 DTaP/Tdap/Td Vaccine (1 - Tdap) 1972 Hepatitis B Screening 1979 Regular Well Visit/Exam 18-64 1979 Pneumococcal vaccine <65 (1 of 2 - PCV) 1980 Zoster Vaccine (1 of 2) 2011 Covid-19 Vaccine ( - season) 2024 09/28/2022, 02/10/2021, 01/13/2021 Influenza Vaccine (Season Ended) 2025 09/28/20 22 Breast Cancer Screening-Mammogram 03/05/2026 025 Procedures Procedure Name Priority Date/Time Associated Diagnosis Comments SCREENING MAMMOGRAM BILATERAL W SILVINA Schedule Routine, Read Routine (OP Routine) 03/05/2025 2:40 PM CDT Encounter for screening mammogram for breast cancer from Last 3 Months Results * Screening Mammogram Bilateral W Silvina (03/05/2025 2:40 PM CDT) Anatomical Region Laterality Modality Breast Bilateral Mammography Impressions 03/11/2025 8:38 AM CDT Bilateral No evidence of malignancy in either breast. OVERALL BI-RADS FINAL ASSESSMENT: 2 - Benign RECOMMENDATION: Recommend bilateral annual screening mammography. Narrative 03/11/2025 8:38 AM CDT EXAMINATION: Screening Mammogram Bilateral W Silvina: 03/05/2025 COMPARISON: Multiple attempts to obtain outside imaging for comparison have been unsuccessful. TECHNIQUE: Mammography was performed with 2D and digital breast tomosynthesis (DBT) images. CAD was utilized. BREAST PARENCHYMAL COMPOSITION: There are scattered areas of fibroglandular density. FINDINGS: Bilateral There is no suspicious mass, calcification, or architectural distortion in either breast. Yulissa Arreaga MD IMG MAMMO PROCEDURES Final Result from Last 3 Months Insurance [facility] MEDICARE [facility] Address: [address] [address] [place] [address] [facility] Care Teams Nail Technician Relationship Specialty Start Date End Date German Cornelius MD [address] [place] [address] PCP - General Family Medicine 08/31/21
--- OUTSIDE RECORDS SUMMARY | 2025-04-02 01:36 | XMS_ITS | Referral Summary ---
Author Organization [facility] Address [address] [place] [address] Care Team Providers Care Fiberglass Fabricator Name Role Phone German Cornelius MD Primary Care Provide r Encounters Date Type Department Care Team Description 03/05/2025 2:30 PM CDT Ancillary Procedure [facility] [address] [place] [address] Encounter for screening mammogram for breast cancer 03/01/2025 1:30 PM CDT Office Visit [facility] [address] [place] [address] Yulissa Arreaga MD Cystocele, midline (Primary Dx); Postmenopausal atrophic vaginitis; Encounter for screening mammogram for breast cancer from Last 3 Months Allergies Active Allergy Reactions Criticality Noted Date [...] on file Legal Sex Female 12:42 PM DOCK LOADER Gender Identity Not on file Sexual Orientation Not on file Last Filed Vital Signs Vital Sign Reading Time Taken Comments Blood Pressure 132/80 03/01/2025 1:18 PM CDT Pulse 76 09/25/2021 11:32 AM DOCK LOADER Temperature 36.8 C (98.2 F) 09/25/2021 11:32 AM DOCK LOADER Respiratory Rate - - Oxygen Saturation 94% 08/08/2014 11: 30 AM CDT Inhaled Oxygen Concentration - - Weight 101.2 kg (223 lb 1.7 oz) 03/05/2025 2:41 PM CDT Height 166.4 cm (5' 5.51) 03/05/2025 2:41 PM CD T Body Mass Index 36.55 03/05/2025 2:41 PM CDT Plan of Treatment Not on file Procedures [...] Final Result from Last 3 Months Insurance [facility] MEDICARE [facility] Address: [address] [address] [place] [address] [place] [address] Care Teams Fiberglass Fabricator Relationship Specialty Start Date End Date German Cornelius MD [address] [place] [address] PCP - General Family Medicine 08/31/21
--- OUTSIDE RECORDS SUMMARY | 2025-04-02 01:36 | XMS_ITS | Clinical Summary ---
Author Organization [facility] [employer] (fka [employer]) Address [address] [place] [address] Care Team Providers Care Consultant Electronics Name Role Phone German Cornelius MD Primary Care Provider [phone] Source Comments [facility] [employer] ([employer]ka [employer]),non-owned Affiliates and Associated Physician Practices is amultiple site organization consisting of ambulatory clinics and hospital sitesin [place], [place], [place] and [place]. This disclosure is being madepursuant to the Care Everywhere program and may not contain all information available regarding this patient. Last updated 18.[facility] [employer] ([employer]) Allergies Active Allergy Reactions Criticality Noted Date Comments Aspirin GI Discomfort 08/28/2018 Morphine Vomiting 08/28/2018 Medications * Be aware that medications may not be up to date on this document. Alwaysverify current medications with the patient. atorvastatin (LIPITOR) 20 MG tablet 20 mg once daily 8 Active clonazePAM (KLONOPIN) 0.5 MG tablet 8 Active fenofibrate (TRICOR) 48 MG tablet 8 Active metFORMIN (GLUCOPHAGE) 1000 MG tablet 8 Active pantoprazole EC (PROTONIX) 40 MG tablet 8 Active lubiprostone (AMITIZA) 24 MCG capsule Take 1 capsule by mouth 2 times daily with morning and evening meal 100 capsule 3 8 Active Additional Information Patient not taking.Reported on 08/28/2018 bisacodyl EC (DULCOLAX) 5 MG tablet Take 2 tablets by mouth 2 times daily 4 tablet 2 8 Active Additional Information Patient not taking.Reported on 08/28/2018 Magnesium Oxide -Mg Supplement 250 MG Take 4 tablets by mouth once daily 100 tablet 2 8 Active Active Problems Problem Noted Date Diagnosed Date Chronic idiopathic constipation 08/28/2018 Generalized abdominal pain 08/28/2018 GI problem 04/10/2018 Social History Tobacco Use Types Packs/Day Years Used Date Smoking Tobacco: Never Smokeless Tobacco: Never Alcohol Use Standard Drinks/Week Comments Yes 0 (1 standard drink = 0.6 oz pur e alcohol) occassion Comments No Sex and Gender Information Value Date Recorded Sex Assigned at Not on file Legal Sex Female 5:31 PM [facility] Gender Identity Not on file Sexual Orientation Not on file Last Filed Vital Signs Vital Sign Reading Time Taken Comments Blood Pressure 124/95 08/28/2018 2:25 PM [facility] Pulse 68 08/28/2018 2:25 PM [facility] Temperature 36.4 C (97.5 F) 08/28/2018 1:57 PM [facility] Respiratory Rate 18 08/28/2018 2:25 PM [facility] Oxygen Saturation 96% 08/28/2018 2:25 PM [facility] Inhaled Oxygen Concentration - - Weight 87.5 kg (193 lb) 08/28/2018 11:52 AM [facility] Height 167.6 cm (5' 6) 08/28/2018 11:52 AM [facility] Body Mass Index 31.15 08/28/2018 11:52 AM [facility] Plan of Treatment Health Maintenance Due Date Last Done Comments COLOGUARD (AGES 45-75) - COL ON CA SCREENING 1960 CT COLONOGRAPHY - COLON CA SCREENING 1960 FIT - COLON CA SCREENING 1960 FLEX SIG - COLON CA SCREENING 1960 MAMMOGRAM 1961 HIV SCREENING 1976 HEPATITIS C SCREENING 10/17/1979 DTAP/TDAP/TD VACCINES (1 - Tdap) 1980 PNEUMOCOCCAL VACCINE 50+ (1 of 1 - PCV) 2011 ZOSTER VACCINE (1 of 2) 2011 SCREENING FOR DIABETES 08/28/2021 08/28/2018 COVID-19 VACCINE ( - 2023-2 5 season) 2024 DEPRESSION SCREENING 10/24/2024 INFLUENZA VACCINE (Season Ended) 2025 COLON MONITORING 08/28/2028 08/28/2018, 08/28/2018 COLONOSCOPY - [...] complete this topic MENINGOCOCCAL (Group B) VACCINE SHARED DECISION-MAKING Aged Out No longer eligible based on patient's age to complete this topic MENINGOCOCCAL GROUPS A/C/Y/W VACCINE Aged Out No longer eligible b ased on patient's age to complete this topic Procedures Procedure Name Priority Date/Time Associated Diagnosis Comments ENDOSCOPY, COLON, SCREENING Routine 08/28/2018 1:18 PM [facility] GLUCOSE - POINT OF CARE Routine 08/28/2018 11:52 AM [facility] from Last 3 Months or Most Recently Relevant to Health Maintenance Results * ENDOSCOPY, COLON, SCREENING (08/28/2018 1:18 PM [facility]) Report Endoscopy POC Endoscopy Department Report _ Patient Name: Mihaela Cueto Procedure Date: 08/28/2018 1:18 PM Date of : 1960 Classification: Outpatient Gender: Female _ Providers: Earnest Robbins MD Referring MD: Procedure: Colonoscopy Indications: Abdominal pain in the right lower quadrant, Constipation Medications: Monitored Anesthesia Care Description of Procedure: Pre-Anesthesia Assessment: - Prior to the procedure, a History and Physical was performed, and patient medications and allergies were reviewed. The patient's tolerance of previous anesthesia was also reviewed. The risks and benefits of the procedure and the sedation options and risks were discussed with the patient. All questions were answered, and informed consent was obtained. Prior Anticoagulants: The patient has taken no previous anticoagulant or antiplatelet agents. ASA Grade Assessment: II - A patient with mild systemic disease. After reviewing the risks and benefits, the patient was deemed in satisfactory condition to undergo the procedure. After I obtained informed consent, the scope was passed under direct vision. Throughout the procedure, the patient's blood pressure, pulse, and oxygen saturations were monitored continuously. The [id number] was introduced through the anus and advanced to the cecum, identified by appendiceal orifice and ileocecal valve. The colonoscopy was technically difficult and complex due to significant looping. Successful completion of the procedure was aided by changing the patient to a supine position. The patient tolerated the procedure well. The quality of the bowel preparation was fair. The ileocecal valve, appendiceal orifice, and rectum were photographed. Findings: The perianal and digital rectal examinations were normal. The colon (entire examined portion) appeared normal. Non-bleeding internal hemorrhoids were found during retroflexion. The hemorrhoids were medium-sized. Estimated Blood Loss: Estimated blood loss: none. Complications: No immediate complications. Impression: - Preparation of the colon was fair limiting sensitivty for polyps, there are no obstructing lesion to cause constipation or abdominal pain but the preparation was not sufficient to serve colon cancer screening colonoscopy. - The entire examined colon is normal. - Non-bleeding internal hemorrhoids. - No specimens collected. Recommendation: - Patient has a contact number available for emergencies. The signs and symptoms of potential delayed complications were discussed with the patient. Return to normal activities tomorrow. Written discharge instructions were provided to the patient. - Resume previous diet. - Continue present medications. - Consider repeating colonoscopy in 1 year for surveillance given preparation of the colon if patients constipation improves. - Return to GI clinic. Attending Participation: I personally performed the entire procedure. I was present and participated during the entire procedure from insertion to removal of the endoscope. Procedure Code(s): --- Professional --- 40242, Colonoscopy, flexible; diagnostic, including collection of specimen(s) by brushing or washing, when performed (separate procedure) Diagnosis Code(s): --- Professional --- K64.8, Other hemorrhoids R10.31, Right lower quadrant pain K59.00, Constipation, unspecified CPT copyright 2016 [employer]. All rights reserved. The codes documented in this report are preliminary and upon customer management specialist review may be revised to meet current compliance requirements. _ Earnest Robbins MD 08/28/2018 2:00:27 PM This report has been signed electronically. Note Initiated On: 08/28/2018 1:18 PM Number of Addenda: [address] 08/28/2018 1:18 PM [facility] Earnest Robbins MD GI PROCEDURE ORDERABLES Edited Result - Final Performing Organization Address City/[facility]/ZIP Co de Phone Number [facility] * GLUCOSE - POINT OF CARE (08/28/2018 11:52 AM [facility]) Glucose WB/POC 112 70 - 115 mg/dL 08/28/2018 11:54 AM [facility] Specimen Type Venous 08/28/2018 11:54 AM [facility] Blood BLOOD SPECIMEN / Unknown 08/28/2018 11:52 AM [facility] 08/28/2018 11:54 AM [facility] Narrative [facility] - 08/28/2018 11:54 AM [facility] Butter Printer: HECTOR ROJAS Princess Rivers MD LAB - POINT OF CARE ORDERABLES Final Result Performing Organization Address City/[facility]/ZIP Co de Phone Number [address] [phone] from Last 3 Months or Most Recently Relevant to Health Maintenance Insurance [facility] Care Teams Consultant Electronics Relationship Specialty Start Date End Date German Cornelius MD [address] [place] [address] PCP - General 11/11/17
[2025-04-02 11:09] VITALS: BP 152/86; PULSE 81; RESP 18; TEMP 36.1; O2SAT 99
[2025-04-02] MEDS: LACTATED RINGERS 1,000 ML 150 ML IV CONT (11:25)
[2025-04-02 11:26] LABS: Glucose Point of Care 114 mg/dl (65-105)
--- NOTE | 2025-04-02 11:42 | P.PNAN_ITS ---
Anes - Initial Pre Proc Eval Procedure: Operation Date: 04/02/25 12:30 Proposed Procedures p Colonoscopy - Chandu Gamble MD Date/Time: 04/02/25 11:42 Surgeon: Chandu Gamble MD Pre Op Diagnosis: Hemorrhage of anus and rectum Patient Data Age: 64 Gender: F Height: 1.68 m Weight: 98.7 kg Last Vital Signs Temp 36.1 C L 04/02/25 11:09 Pulse 81 04/02/25 11:09 Resp 18 04/02/25 11:09 BP 152/86 H 04/02/25 11:09 Pulse Ox 99 04/02/25 11:09 O2 Del Method Room Air 04/02/25 11:09 Allergies Allergy/AdvReac Type Severity Reaction Status Date / Time aspirin Allergy Unknown Nausea and Verified 04/02/25 11:08 Vomiting morphine Allergy Unknown Unknown Verified 04/02/25 11:08 procaine Allergy Unknown NOVOCAINE Verified 04/02/25 11:08 DOES NOTHING SURGICAL TAPE Allergy Severe BLISTERS Uncoded 04/02/25 11:08 Home Medications ?Medication ?Instructions ?Recorded ?Confirmed ?Type atorvastatin 40 mg tablet 40 mg PO DAILY 08/20/20 03/25/25 History clonazepam 0.5 mg tablet 1 mg PO HS 08/20/20 03/25/25 History fenofibrate nanocrystallized 48 mg 48 mg PO DAILY 08/20/20 03/25/25 History tablet pantoprazole 40 mg tablet,delayed 40 mg PO DAILY 08/20/20 03/25/25 History release pioglitazone 30 mg tablet 30 mg PO DAILY 08/20/20 03/25/25 History gabapentin 300 mg capsule 300 mg PO Q12H 02/01/25 03/25/25 History peg 3350-electrolytes 236 240 ml PO Q10M #4,000 mL 02/07/25 03/25/25 Rx gram-22.74 gram-6.74 gram-5.86 gram solution (Golytely) Laboratory Tests 04/02/25 11:21 POC Capillary Glucose 114 H mg/dl (65-105) Patient hx anesthesia problems: none Family hx anesthesia problems: none Results Review: All pre-operative results and documents have been reviewed as part of the pre- operative evaluation. [facility] Past Medical History Medical History Diabetes mellitus Restless leg syndrome Dyslipidemia Kidney stones Gastroesophageal reflux disease Surgical History Surgical History History of cardiac catheterization (2021) Clear coronaries per patient report. History of hysterectomy History of appendectomy History of cholecystectomy History of section Times for History of hernia repair Multiple hernia repairs including some with mesh and some mesh has been removed as well. Family History Family History Father Diabetes mellitus Family history of cardiovascular disease Social History Social History Social History: Surrogate medical decision maker: Cristhian Agrawal. Code status: Full code. Smoking status: Never smoker Alcohol intake: never Substance use: never Substance use type: does not use Lack of Transportation: No Lack of Food: Never True Current Housing: I Have Housing Concerned About Future Housing: No Difficulty Paying Gas/Electric Bills: No Difficulty Paying for Meds: No Currently Unemployed: No Education: Associate Degree Difficulty w/ Childcare or Family Care: No Living arrangements: with family Spiritual care concerns: No Anes - Eval Final PreProcedure Day of Procedure 04/02/25 11:42 Patient weight: obese Heart: regular rate and rhythm Lungs: clear to auscultation Airway: Mallampati scale class II Neurological: alert and oriented Last oral intake: >/= 8 hours ASA classification: III Emergent: no Anesthetic plan: proceed Anesthesia type and monitoring: general GIVS and standard monitoring Results Review: All pre-operative results and documents have been reviewed as part of the pre-operative evaluation. Informed Consent: The patient's anesthetic plan and its attendant risks and benefits were discussed with the patient/family/POA. Questions were solicited and answers provided to the satisfaction of the patient/family/POA.
--- NOTE | 2025-04-02 12:28 | P.HP_ITS ---
History of Present Illness History of Present Illness Consent: Risks, benefits, and alternatives have been discussed and questions answered. Patient agrees to proceed with procedure. Chief complaint: Hemorrhage of anus and rectum Narrative: Mihaela Guadalupe is a 64 year old female who had episode of rectal bleeding, last colonoscopy 5 years Review of Systems Review of Systems: All systems reviewed & are unremarkable except as noted in HPI and below PMFSH Past Medical History Medical History Diabetes mellitus Restless leg syndrome Dyslipidemia Kidney stones Gastroesophageal reflux disease Surgical History Surgical History History of cardiac catheterization (2021) Clear coronaries per patient report. History of hysterectomy History of appendectomy History of cholecystectomy History of section Times for History of hernia repair Multiple hernia repairs including some with mesh and some mesh has been re moved as well. Family History Family History Father Diabetes mellitus Family history of cardiovascular disease Social History Social History Social History: Surrogate medical decision maker: Cristhian Agrawal. Code status: Full code. Smoking status: Never smoker Alcohol intake: never Substance use: never Substance use type: does not use Lack of Transportation: No Lack of Food: Never True Current Housing: I Have Housing Concerned About Future Housing: No Difficulty Paying Gas/Electric Bills: No Difficulty Paying for Meds: No Currently Unemployed: No Education: Associate Degree Difficulty w/ Childcare or Family Care: No Living arrangements: with family Spiritual care concerns: No Meds Home Medications and Allergies Home Medications ?Medication ?Instructions ?Recorded ?Confirmed ?Type atorvastatin 40 mg tablet 40 mg PO DAILY 08/20/20 03/25/25 History clonazepam 0.5 mg tablet 1 mg PO HS 08/20/20 03/25/25 History fenofibrate nanocrystallized 48 mg 48 mg PO DAILY 08/20/20 03/25/25 History tablet pantoprazole 40 mg tablet,delayed 40 mg PO DAILY 08/20/20 03/25/25 History release pioglitazone 30 mg tablet 30 mg PO DAILY 08/20/20 03/25/25 History gabapentin 300 mg capsule 300 mg PO Q12H 02/01/25 03/25/25 History peg 3350-electrolytes 236 240 ml PO Q10M #4,000 mL 02/07/25 03/25/25 Rx gram-22.74 gram-6.74 gram-5.86 gram solution (Golytely) Allergies Allergy/AdvReac Type Severity Reaction Status Date / Time aspirin Allergy Unknown Nausea and Verified 04/02/25 11:08 Vomiting morphine Allergy Unknown Unknown Verified 04/02/25 11:08 procaine Allergy Unknown NOVOCAINE Verified 04/02/25 11:08 DOES NOTHING SURGICAL TAPE Allergy Severe BLISTERS Uncoded 04/02/25 11:08 Vital Signs Vital Signs - 24 hr 04/02/25 11:09 Temperature 97 F L Pulse Rate 81 Respiratory Rate 18 Blood Pressure 152/86 H Pulse Oximetry 99 Oxygen Delivery Room Air Exam Const: General: comfortable and no acute distress HENMT: Face/Nose/Sinus: Normal nares present Eyes: General: appearance normal, both eyes and all related structures Neck: Neck: no JVD Resp: Auscultation: clear to auscultation bilaterally Cardio: Rate: regular rate Rhythm: regular rhythm GI: Inspection: non-distended GI Palp: Yes Soft to palpation Skin: General skin exam: normal color Neuro: Speech: normal speech Extrem: General: normal to inspection Psych: Mental Status: mental status grossly normal Assessment and Plan Assessment and plan (1) Bright red blood per rectum: Code(s): K62.5 - Hemorrhage of anus and rectum Status: Acute Assessment and Plan: colonoscopy
[2025-04-02 12:52] VITALS: BP 116/66; PULSE 67; RESP 17; O2SAT 98
[2025-04-02 13:02] VITALS: BP 124/78; PULSE 65; RESP 19; O2SAT 100
[2025-04-02 13:12] VITALS: BP 150/78; PULSE 60; RESP 15; O2SAT 100
== END 2025-04-02 13:27 | disposition home or self-care (01) ==
PROVIDERS: PCP Family Medicine; Referring Provider Nurse Practitioner; Visit Provider Internal Medicine Gastroenterology
PROC: 0DJD8ZZ Inspection of Lower Intestinal Tract, Via Natural or Artificial Opening Endoscopic (ICD-10-PCS; CPT 45378; principal; 2025-04-02 12:30)
DX: K92.1 Melena (principal); K64.8 Other hemorrhoids; E11.9 Type 2 diabetes mellitus without complications
CPT/HCPCS: 45378; 82948; J2003; J2704; J7120